=== PATIENT | male | born 1955 | race Caucasian/White ===

== ENCOUNTER 2016-05-08 22:14 | Observation (INO) ==
[2016-05-08] MEDS ORDERED: Ipratropium/Albuterol Neb 3 ML IH ONE (22:28)
[2016-05-08] MEDS ORDERED: *HR* LORazepam 0.5 MG TABLET PO ONE (22:29)
--- NOTE | 2016-05-08 22:33 | Emergency Department Note ---
Disposition Clinical Impression: COPD exacerbation Disposition: Admitted As Inpatient Condition: Fair SOB HPI - General Chief Complaint: ED Shortness of Breath/Dyspnea Stated Complaint: difficulty breathing Source: patient, EMS Mode of arrival: EMS Limitations: no limitations Nursing Notes Reviewed: Yes Vital Signs Reviewed: Yes - History of Present Illness Patient presents to the ED via EMS with complaint of difficulty breathing. States symptoms have been worsening over the past week. He complains of chest tightness. He has also had a sore throat and rhinorrhea. He reports a dry cough and occasional sneezing. He also reports subjective fever and chills. States he has been compliant with all of his COPD medications. He is on azithromycin for prophylaxis and baseline steroids already at home. He wears oxygen at 2 to 2-1/2 L constantly. He was given one nebulizer treatment by EMS. Per their report his saturations were in the upper 80s and they increased his oxygen was increased to 6 L. They were unable to establish an IV to give steroids. On arrival patient is tachypneic with increased work of breathing. - Related Data Home Medications Medication Instructions Recorded Confirmed Budesonide/Formoterol 160/4.5 2 puff IH BID 03/18/15 02/10/16 [Symbicort 160/4.5] Roflumilast [Daliresp] 500 mcg PO DAILY 03/18/15 02/10/16 Tiotropium [Spiriva] 1 puff IH DAILY 03/18/15 02/10/16 LORazepam [Ativan] 0.5 mg PO BID 04/06/15 02/10/16 Montelukast [Singulair] 10 mg PO DAILY 04/06/15 02/10/16 Albuterol Sulfate [Ventolin Hfa] 2 puff IH Q4H PRN 02/10/16 02/10/16 Azithromycin [Zithromax] 250 mg PO 3XW MDD 02/10/16 02/10/16Thursday,thursday,thursday Cetirizine HCl [All Day Allergy] 10 mg PO DAILY 02/10/16 02/10/16 Dicyclomine [Bentyl] 10 mg PO QID 02/10/16 02/10/16 Furosemide [Lasix] 20 mg PO DAILY 02/10/16 02/10/16 Hydrochlorothiazide 12.5 mg PO DAILY 02/10/16 02/10/16 Ipratropium [place] 1 spray NS BID 02/10/16 02/10/16 Levalbuterol HCl [Xopenex Neb] 1.25 mg IH Q8H 02/10/16 02/10/16 Potassium Chloride [Klor-Con 10] 10 meq PO BID 02/10/16 02/10/16 PredniSONE 10 mg PO DAILY 02/10/16 02/10/16 Previous Rx's Medication Instructions Recorded Albuterol Neb [Proventil Neb] 2.5 mg IH [id number] 30 Days 04/09/15 PredniSONE 10 mg PO TAPER #30 tablet 02/14/16 Levofloxacin [Levaquin] 500 mg PO DAILY #2 tablet 03/08/16 Oxycodone HCl/Acetaminophen 1 each PO Q8H PRN #10 tablet 03/08/16 [Percocet 5-325 mg Tablet] PredniSONE 10 mg PO BIDWM #4 tablet 03/08/16 Dicyclomine [Bentyl] 10 mg PO QID #20 capsule 03/10/16 Loratadine [Claritin] 5 mg PO DAILY #30 tablet 03/10/16 PredniSONE 40 mg PO DAILY #30 tablet 03/10/16 Allergies Allergy/AdvReac Type Severity Reaction Status Date / Time Penicillins [PCN] Allergy Vomiting Verified 03/10/16 15:03 Constitutional: Reports: fever (subjective), chills. Denies: weakness, weight change Eyes: Denies: eye pain, eye discharge, vision change ENT ED: Reports: as per HPI, throat pain, congestion Cardiovascular: Denies: chest pain, palpitations, dyspnea on exertion, edema, syncope Respiratory: Reports: cough, dyspnea, wheezes. Denies: hemoptysis, stridor, sputum production Gastrointestinal: Denies: abdominal pain, nausea, vomiting, diarrhea, constipation, hematemesis, melena, hematochezia Genitourinary: Denies: urgency, dysuria, frequency, hematuria Musculoskeletal: Denies: back pain, neck pain, arthralgia, myalgia Integumentary: Denies: rash, abrasion, lesions Neurological: Denies: headache, weakness, numbness, paresthesias, confusion, abnormal gait, vertigo Psychiatric: Denies: anxiety, depression, suicidal thoughts, homicidal thoughts , auditory hallucinations, visual hallucinations Endocrine: Denies: fatigue Hematological/Lymphatic: Denies: easy bleeding, easy bruising Allergic/Immunologic: Denies: facial swelling, urticaria Past Medical History - Past Medical History Medical history: Reports: arthritis, asthma, COPD, thyroid disease, other Surgical history: Reports: no surgical history Psychiatric history: Reports: anxiety - Social History Smoking Status: Former smoker Smokeless Tobacco Status: No Alcohol use: Reports: none Drug use: Reports: none Physical Exam - General Limitations: no limitations General appearance: alert, anxious, in distress - Head Head exam: atraumatic, normocephalic, normal inspection - Eye Eye exam: Present: normal appearance, PERRL, EOMI - ENT ENT exam: normal exam, normal oropharynx, mucous membranes moist, TM's normal bilaterally, normal external ear exam - Neck Neck exam: Present: normal inspection, full ROM, trachea midline. Absent: lymphadenopathy - Chest Chest inspection: Present: normal inspection, symmetric chest wall rise - Respiratory Respiratory exam: Present: respiratory distress (Speaking in 2-4 word sentences) , wheezes, accessory muscle use - Expanded Respiratory Exam Location: wheezes: Lower, Upper, Right, Left, decreased breath sounds: Left, Right, Upper, Lower - Cardiovascular Cardiovascular exam: Present: regular rate, normal rhythm, normal heart sounds - Abdominal Exam Abdominal exam: Present: soft, Non-Tender. Absent: tenderness, distention, guarding, rebound, rigidity - Extremities Exam Extremities exam: Present: normal inspection, full ROM. Absent: tenderness, pedal edema - Back Exam Back exam: Present: normal inspection, full ROM. Absent: tenderness - Neurological Exam Neurological exam: Present: alert, oriented X3 - Psychiatric Psychiatric exam: Present: normal affect, normal mood - Skin Skin exam: Present: warm, dry, intact, normal color Course Course Narrative: Presents to the ED with 1 week of worsening shortness of breath associated respirations symptoms including fever. He was febrile on arrival here at 102. He was very tachypneic with increased work of breathing on arrival. He was given nebulizer treatments, Solu-Medrol and Ativan as he is known to have a significant component of anxiety and takes Ativan at home. Blood cultures were drawn and chest x-ray was obtained along with EKG. Chest x-ray showed a linear opacity that could represent atelectasis versus pneumonia given the fever. He had some improvement in symptoms and aeration with treatment but remained tachypneic with increased oxygen requirement. Patient requires admission for his COPD exacerbation with possibility of pneumonia. I spoke to the hospitalist business solutions consultant, Dr. Magana, who agreed to accept the patient. Vital Signs Temperature 102.0 F H 05/08/16 22:16 Pulse Rate 141 05/08/16 22:16 Respiratory Rate 28 05/08/16 22:16 Blood Pressure 132/99 05/08/16 22:16 O2 Sat by Pulse Oximetry 92 L 05/08/16 22:16 Temperature 99.6 F 05/09/16 02:33 Pulse Rate 99 05/09/16 02:33 Respiratory Rate 19 05/09/16 02:33 Blood Pressure 98/65 05/09/16 02:33 O2 Sat by Pulse Oximetry 96 05/09/16 02:33 Oxygen Delivery Oxygen Delivery Nasal Cannula Shortness of Breath/Dyspnea - Differential Diagnosis Likely: acute exacerbation of chronic obstructive airways disease, pneumonia - Medical Records Medical records reviewed: Yes I reviewed the patient's medical records. - Lab Data Lab results reviewed: Yes I reviewed the patient's lab results. Result diagrams: 05/08/16 22:51 05/08/16 22:51 Lab Results 05/08/16 05/08/16 05/08/16 Range/Units 22:51 22:51 22:51 WBC 10.8 (4.3-11.1) K/mcL RBC 3.86 L (4.19-5.50) M/mcL Hgb 12.9 (12.9-16.9) g/dL Hct 38.6 (37.5-50.1) % MCV 100.0 (83.0-100.0) fL MCH 33.4 H (28.0-33.3) pg MCHC 33.4 (31.6-35.5) g/dL RDW 13.0 (11.5-14.5) % Plt Count 213 (140-400) K/mcL MPV 8.9 L (9.4-12.4) fL Immature Gran % 0.3 (0-4) % Seg Neutrophils % 75.9 % Lymphocytes % 11.1 % Monocytes % 9.9 % Eosinophils % 2.2 % Basophils % 0.6 % Neutrophils # 8.2 (1.6-8.9) K/mcL Lymphocytes # 1.2 (0.6-4.6) K/mcL Monocytes # 1.1 (0.0-1.3) K/mcL Eosinophils # 0.2 (0.0-0.6) K/mcL Basophils # 0.1 (0.0-0.2) K/mcL Sodium 143 (136-145) mEq/L Potassium 4.5 (3.5-4.5) mEq/L Chloride 104 (98-109) mEq/L Carbon Dioxide 28 (19-29) mEq/L BUN 14 (8-26) mg/dL Creatinine 0.81 (0.72-1.25) mg/dL Est GFR ( Amer) > 60 (> 60) Est GFR (Non-Af Amer) > 60 (> 60) BUN/Creatinine Ratio 17 (6-26) Glucose 111 H (70-99) mg/dL Calculated Osmolality 297 (280-300) Calcium 9.7 (8.6-10.8) mg/dL Troponin I 0.01 (0-0.03) ng/mL B-Natriuretic Peptide (0-100) pg/mL 05/08/16 Range/Units 22:51 WBC (4.3-11.1) K/mcL RBC (4.19-5.50) M/mcL Hgb (12.9-16.9) g/dL Hct (37.5-50.1) % MCV (83.0-100.0) fL MCH (28.0-33.3) pg MCHC (31.6-35.5) g/dL RDW (11.5-14.5) % Plt Count (140-400) K/mcL MPV (9.4-12.4) fL Immature Gran % (0-4) % Seg Neutrophils % % Lymphocytes % % Monocytes % % Eosinophils % % Basophils % % Neutrophils # (1.6-8.9) K/mcL Lymphocytes # (0.6-4.6) K/mcL Monocytes # (0.0-1.3) K/mcL Eosinophils # (0.0-0.6) K/mcL Basophils # (0.0-0.2) K/mcL Sodium (136-145) mEq/L Potassium (3.5-4.5) mEq/L Chloride (98-109) mEq/L Carbon Dioxide (19-29) mEq/L BUN (8-26) mg/dL Creatinine (0.72-1.25) mg/dL Est GFR ( Amer) (> 60) Est GFR (Non-Af Amer) (> 60) BUN/Creatinine Ratio (6-26) Glucose (70-99) mg/dL Calculated Osmolality (280-300) Calcium (8.6-10.8) mg/dL Troponin I (0-0.03) ng/mL B-Natriuretic Peptide 25 (0-100) pg/mL - Radiology Data Radiology results reviewed: Yes I reviewed the patient's radiology results. ITS Impressions Chest X-Ray 05/08/16 22:19 IMPRESSION: Minimal left basilar opacity has morphology favoring atelectasis. COPD. D/ / Jean Paul Collado MD / Jean Paul Collado MD Interpreting Provider: Jean Paul Collado MD - EKG Data EKG attestation: Yes I reviewed and interpreted this EKG. Rate: Reports: tachycardia Rhythm: Reports: junctional [place]/QRS: Reports: right axis deviation (borderline) Interpretation: Reports: no acute changes, unchanged when compared to prior tracing (date) (03/10/17)
[2016-05-08 22:58] LABS: Basophils # 0.1 K/mcL (0.0-0.2); Basophils % 0.6 %; Eosinophils # 0.2 K/mcL (0.0-0.6); Eosinophils % 2.2 %; Hematocrit 38.6 % (37.5-50.1); Hemoglobin 12.9 g/dL (12.9-16.9); Immature Granulocytes % 0.3 % (0-4); Lymphocytes # 1.2 K/mcL (0.6-4.6); Lymphocytes % 11.1 %; Mean Corpuscular HGB Conc 33.4 g/dL (31.6-35.5); Mean Corpuscular Hemoglobin 33.4 pg (28.0-33.3); Mean Platelet Volume 8.9 fL (9.4-12.4); Monocytes # 1.1 K/mcL (0.0-1.3); Monocytes % 9.9 %; Neutrophils # 8.2 K/mcL (1.6-8.9); Platelet Count 213 K/mcL (140-400); Red Blood Count 3.86 M/mcL (4.19-5.50); Segmented Neutrophils % 75.9 %
[2016-05-08 23:13] LABS: BUN/Creatinine Ratio 17 (6-26); Blood Urea Nitrogen 14 mg/dL (8-26); Calcium 9.7 mg/dL (8.6-10.8); Carbon Dioxide 28 mEq/L (19-29); Chloride 104 mEq/L (98-109); Glucose 111 mg/dL (70-99); Osmolality,Calculated 297 (280-300); Potassium 4.5 mEq/L (3.5-4.5); Sodium 143 mEq/L (136-145); eGFR For African Americans > 60 (> 60); eGFR For Non-African Americans > 60 (> 60)
[2016-05-08] MEDS ORDERED: Levofloxacin 500 MG/100 ML 500 MG/100 ML BAG IVPB ONE (23:26)
[2016-05-09] MEDS ORDERED: Naloxone 0.4 MG/ML INJ IVP PRN ×2 (01:55→03:28)
[2016-05-09] MEDS ORDERED: Ipratropium/Albuterol Neb 3 ML IH SCH (04:00)
[2016-05-09] MEDS: Ipratropium/Albuterol Neb 3 ML IH SCH ×6 (04:25→23:48)
[2016-05-09] MEDS: Tiotropium 18 MCG inhalation IH SCH (08:25)
[2016-05-09] MEDS: Budesonide/Formoterol 160/4.5 MDI IH SCH ×2 (08:26→20:07)
[2016-05-09] MEDS ORDERED: IPRATROPIUM BROMIDE NS SCH (09:00)
[2016-05-09] MEDS ORDERED: Loratadine 10 MG TABLET PO SCH (09:00)
[2016-05-09] MEDS: *HR* LORazepam 0.5 MG TABLET PO SCH ×2 (09:44→20:17)
[2016-05-09] MEDS: Loratadine 10 MG TABLET PO SCH (09:47)
[2016-05-09] MEDS: Furosemide 20 MG TABLET PO SCH (09:48)
[2016-05-09] MEDS: (Roflumilast [Daliresp] 500 MCG) PO SCH (09:48)
--- NOTE | 2016-05-09 16:45 | Internal Med History&Physical ---
Date of Encounter: 05/09/16 Time of Encounter: 16:25 Assessment and Plan (1) COPD exacerbation Current visit: Yes Status: Acute He has been started on Levaquin and was given a single dose of Solu-Medrol. Home medicines of Symbicort, Singulair, and Spiriva have been ordered with kunal billingsley. Further workup be done as needed. (2) Anxiety Current visit: No Status: Chronic Continue lorazepam Internal Medicine - H&P: HPI Chief complaint: Cough and dyspnea Admitted From: Home Plans for Post Hospital Care: Home History of present illness: Mr. Aquino is a 60 year old male came to emergency room complaining of increasing cough with dyspnea and pharyngitis symptoms onset 3 days previously. The cough was nonproductive. He was evaluated emergency room and felt to have exacerbation of COPD. He was admitted to [facility] floor for ongoing care needs. He was hospitalized last at [facility] February 2016 with similar complaints. He has been several times at [facility] and [facility] in the past few years generally with COPD exacerbations. His respiratory history is significant for known chronic lung disease with pulmonary function tests done April 2013 at [facility] showing very severe obstructive lung disease as well as probable restrictive lung disease. He wears oxygen 24/7 at home. He smoked from age [age] up to 1 pack per day. He denies smoking since discharge from [facility] in December. He had chest CT done . Past Med Surg Social Fam HX - Past Medical History Medical history: arthritis, asthma, COPD, thyroid disease, other Psychiatric history: anxiety - Past Surgical History Surgical History: no surgical history - Social History Smoking Status: Former smoker Smokeless Tobacco Status: No Alcohol use: none Drug use: none - Family History Mother Adopted: Yes Family Member Ethnicity: Non- Living Status: Hx Family Respiratory Disorders: Yes (EMPHYSEMA) Internal Medicine - H&P: Meds Budesonide/Formoterol 160/4.5 [Symbicort 160/4.5] 2 puff IH BID 03/18/15 [ History] Roflumilast [Daliresp] 500 mcg PO DAILY 03/18/15 [History] Tiotropium [Spiriva] 1 puff IH DAILY 03/18/15 [History] LORazepam [Ativan] 0.5 mg PO BID 04/06/15 [History] Montelukast [Singulair] 10 mg PO DAILY 04/06/15 [History] Albuterol Neb [Proventil Neb] 2.5 mg IH [id number] 30 Days 04/09/15 [Rx] Albuterol Sulfate [Ventolin Hfa] 2 puff IH Q4H PRN 02/10/16 [History] Azithromycin [Zithromax] 250 mg PO 3XW MDD thursday,thursday,thursday02/10/16 [ History] Cetirizine HCl [All Day Allergy] 10 mg PO DAILY 02/10/16 [History] Dicyclomine [Bentyl] 10 mg PO QID 02/10/16 [History] Furosemide [Lasix] 20 mg PO DAILY 02/10/16 [History] Hydrochlorothiazide 12.5 mg PO DAILY 02/10/16 [History] Ipratropium [place] 1 spray NS BID 02/10/16 [History] Levalbuterol HCl [Xopenex Neb] 1.25 mg IH Q8H 02/10/16 [History] Potassium Chloride [Klor-Con 10] 10 meq PO BID 02/10/16 [History] PredniSONE 10 mg PO DAILY 02/10/16 [History] PredniSONE 10 mg PO TAPER #30 tablet 02/14/16 [Rx] Levofloxacin [Levaquin] 500 mg PO DAILY #2 tablet 03/08/16 [Rx] Oxycodone HCl/Acetaminophen [Percocet 5-325 mg Tablet] 1 each PO Q8H PRN #10 tablet 03/08/16 [Rx] PredniSONE 10 mg PO BIDWM #4 tablet 03/08/16 [Rx] Dicyclomine [Bentyl] 10 mg PO QID #20 capsule 03/10/16 [Rx] Loratadine [Claritin] 5 mg PO DAILY #30 tablet 03/10/16 [Rx] PredniSONE 40 mg PO DAILY #30 tablet 03/10/16 [Rx] Allergies Penicillins [PCN] Allergy (Verified 03/10/16 15:03) Vomiting All Systems PM: A 10-system review of systems was performed and is negative for pertinent findings except as documented above in the HPI. Review of systems: Review of systems from the February 2016 [facility] hospitalization were reviewed and revised as below. Gen.: His weight has been stable since the December 2015 [facility] hospitalization approximately 53 kg Cardiovascular: He has no documented hypertension PA heart failure DVT or pulmonary embolus. He had an echocardiogram 06/20/2014 which showed LVEF of 60 % with normal systolic and diastolic function. There was no significant valvular abnormality present. Respiratory: As per history of present illness GI: He has no known disorders of his liver gallbladder or exocrine pancreas : No history of hematuria dysuria or kidney stones Neurologic: He denies large distribution strokes or seizures Endocrine: He has no known diabetes or thyroid disease or hyperlipidemia Hematology/oncology: He has had anemia in the past but is now resolved. He has not had documented malignancies. He had pulmonary nodules reported in the past that have been stable for [address] scan per my H&P of May 2014. Psychiatric: He has anxiety but no significant depression or other mental health issues MuskSkeletal: He has minimal arthritis in his hand but has no known gout or osteoporosis - Constitutional Vitals: Temp Pulse Resp BP Pulse Ox 97.8 F 92 20 108/63 94 L 05/09/16 11:12 05/09/16 11:12 05/09/16 15:53 05/09/16 11:12 05/09/16 15:53 Exam: Gen.: He is a well-developed lean male sitting in a chair who appears in minimal respiratory distress at present time. HEENT: Head is atraumatic and normocephalic. Eyes: EOMI. There is no scleral icterus. Mouth: Mucosa is dry Neck: There is no thyromegaly or adenopathy noted Heart: Regular without murmurs gallops or ectopics Lungs: He has diminished breath sounds diffusely. There is prolonged expiratory phase and mild diffuse wheezing. Abdomen: There is minimal tenderness to palpation. Exam is limited because he is in the seated position. Extremities: He has 1+ edema of the dorsum of the feet and perimalleolar area bilaterally. He has minimal DJD changes of his hands. Neurologic: Mental status: He is talkative and good historian. Cranial nerves: Smile is symmetric. Forehead wrinkles bilaterally. Tongue protrudes midline. EOMI. Motor: He has no pronator drift. He has increased shaking of his hands and feet on intentional movement. Cerebellar: Finger to nose intact bilaterally. Skin: Warm and dry. He has erythematous dermatitis of his face. Internal Med - H&P Results - Labs CBC & Chem 7: 05/08/16 22:51 05/08/16 22:51 - VTE Reasons for not Prescribing Prophylaxis: Treatment not Indicated - Low risk for VTE
[2016-05-09] MEDS ORDERED: BENZOCAINE/MENTHOL 1 LOZENGE (BAG OF 6) MM PRN (16:56)
[2016-05-09] MEDS: Azithromycin 250 MG TABLET PO SCH (20:17)
[2016-05-10] MEDS: Ipratropium/Albuterol Neb 3 ML IH SCH ×3 (04:39→21:30)
[2016-05-10] MEDS: *HR* LORazepam 0.5 MG TABLET PO PRN ×2 (05:13→13:57)
[2016-05-10] MEDS: Levalbuterol Neb 1.25 MG/3 ML IH PRN ×2 (05:15→21:17)
[2016-05-10 05:22] LABS: Basophils # 0.1 K/mcL (0.0-0.2); Basophils % 0.7 %; Eosinophils # 0.1 K/mcL (0.0-0.6); Eosinophils % 0.7 %; Hematocrit 36.6 % (37.5-50.1); Hemoglobin 12.1 g/dL (12.9-16.9); Immature Granulocytes % 0.3 % (0-4); Lymphocytes # 1.5 K/mcL (0.6-4.6); Lymphocytes % 16.8 %; Mean Corpuscular HGB Conc 33.1 g/dL (31.6-35.5); Mean Corpuscular Hemoglobin 32.8 pg (28.0-33.3); Mean Corpuscular Volume 99.2 fL (83.0-100.0); Mean Platelet Volume 9.3 fL (9.4-12.4); Monocytes # 1.5 K/mcL (0.0-1.3); Monocytes % 16.6 %; Neutrophils # 5.8 K/mcL (1.6-8.9); Platelet Count 229 K/mcL (140-400); Red Blood Count 3.69 M/mcL (4.19-5.50); Red Cell Distribution Width 13.2 % (11.5-14.5); Segmented Neutrophils % 64.9 %
[2016-05-10] MEDS: Furosemide 20 MG TABLET PO SCH (08:01)
[2016-05-10] MEDS: Loratadine 10 MG TABLET PO SCH (08:02)
[2016-05-10] MEDS: *HR* LORazepam 0.5 MG TABLET PO SCH ×3 (08:02→20:21)
[2016-05-10] MEDS: (Roflumilast [Daliresp] 500 MCG) PO SCH ×2 (08:04→14:30)
[2016-05-10] MEDS ORDERED: Albuterol 2.5 MG/3 ML NEBULIZER ONE (08:23)
[2016-05-10] MEDS: Budesonide/Formoterol 160/4.5 MDI IH SCH ×2 (08:29→21:18)
[2016-05-10] MEDS: Tiotropium 18 MCG inhalation IH SCH (09:01)
[2016-05-10] MEDS: Chloraseptic Spray 177 ML BOTTLE MM PRN ×2 (09:08→14:32)
[2016-05-10] MEDS: Albuterol 2.5 MG/3 ML NEBULIZER IH PRN ×2 (11:08→14:49)
--- NOTE | 2016-05-10 14:52 | Internal Med Progress Note ---
Date of Encounter: 05/10/16 Time of Encounter: 14:25 - Assessment and plan (1) COPD exacerbation Current Visit: Yes Status: Acute Assessment and plan: May 10. Continue present regimen. WBC and differential have improved from yesterday. (2) Anxiety Current Visit: No Status: Chronic Assessment and plan: May 10. Continue lorazepam. Will increase frequency of scheduled to every 6 hours. - Subjective Interval history: He complains of significant dyspnea - Constitutional Vitals: Temp Pulse Resp BP Pulse Ox 98.6 F 110 18 146/80 95 05/10/16 11:27 05/10/16 11:27 05/10/16 11:27 05/10/16 11:27 05/10/16 11:27 Exam: He appears somewhat anxious, sitting in a chair. He has audible expiratory wheezing with diminished breath sounds diffusely. I reviewed his medications and lab results. Internal Medicine: Result - Labs CBC & Chem 7: 05/10/16 05:01 05/08/16 22:51 Labs: Short CBC 05/10/16 Range/Units 05:01 WBC 8.9 (4.3-11.1) K/mcL Hgb 12.1 L (12.9-16.9) g/dL Hct 36.6 L (37.5-50.1) % Plt Count 229 (140-400) K/mcL Neutrophils # 5.8 (1.6-8.9) K/mcL - VTE Reasons for not Prescribing Prophylaxis: Treatment not Indicated - Low risk for VTE Consult Discharge Plan - Plan Referrals: NO,PCP [Primary Care Provider] - 1 week
[2016-05-10] MEDS ORDERED: *HR* LORazepam 2 MG/ML VIAL IVP ONE (14:56)
[2016-05-10] MEDS ORDERED: *HR* Metoprolol 5 MG/5 ML VIAL IVP ONE (15:27)
[2016-05-10] MEDS: PredniSONE 20 MG TABLET PO SCH ×2 (15:33→18:51)
[2016-05-10] MEDS: Mag Hydrox/Al Hydrox/Simeth 30 ML UDC PO PRN ×2 (15:51→20:22)
[2016-05-11] MEDS: Levalbuterol Neb 1.25 MG/3 ML IH PRN ×2 (01:19→05:11)
[2016-05-11] MEDS: *HR* LORazepam 0.5 MG TABLET PO SCH ×4 (05:59→20:54)
[2016-05-11] MEDS: Chloraseptic Spray 177 ML BOTTLE MM PRN ×2 (08:14→15:27)
[2016-05-11] MEDS: *HR* OxyCODONE/APAP 5/325 TABLET PO PRN (08:16)
[2016-05-11] MEDS: Furosemide 20 MG TABLET PO SCH (08:18)
[2016-05-11] MEDS: Loratadine 10 MG TABLET PO SCH (08:18)
[2016-05-11] MEDS: PredniSONE 20 MG TABLET PO SCH ×2 (08:18→17:57)
[2016-05-11] MEDS: (Roflumilast [Daliresp] 500 MCG) PO SCH ×2 (08:18→08:19)
[2016-05-11] MEDS: Tiotropium 18 MCG inhalation IH SCH (08:45)
[2016-05-11] MEDS: Albuterol 2.5 MG/3 ML NEBULIZER IH PRN ×4 (08:46→21:31)
[2016-05-11] MEDS: Budesonide/Formoterol 160/4.5 MDI IH SCH ×2 (08:47→21:31)
--- NOTE | 2016-05-11 10:55 | Internal Med Progress Note ---
Date of Encounter: 05/11/16 Time of Encounter: 10:45 - Assessment and plan (1) COPD exacerbation Current Visit: Yes Status: Acute Assessment and plan: May 10. Continue present regimen. WBC and differential have improved from yesterday. May 11. Continue present regimen (2) Anxiety Current Visit: No Status: Chronic Assessment and plan: May 10. Continue lorazepam. Will increase frequency of scheduled to every 6 hours. May 11. Continue present scheduled and prn Ativan. - Subjective Interval history: May 10. He complains of significant dyspnea May 11. He has no new complaints. He states his breathing is slightly improved and his throat is less sore. - Constitutional Vitals: Temp Pulse Resp BP Pulse Ox 98.4 F 97 17 106/74 94 L 05/11/16 07:44 05/11/16 07:44 05/11/16 08:51 05/11/16 07:44 05/11/16 08:51 Exam: He is sitting in a chair and appears more calm. His Ativan dose was increased yesterday. He still has prolonged expiratory phase and mild diffuse wheezing. I reviewed his medications and lab results. Internal Medicine: Result - Labs CBC & Chem 7: 05/10/16 05:01 05/08/16 22:51 - VTE Reasons for not Prescribing Prophylaxis: Treatment not Indicated - Low risk for VTE Consult Discharge Plan - Plan Referrals: NO,PCP [Primary Care Provider] - 1 week
[2016-05-11] MEDS: Mag Hydrox/Al Hydrox/Simeth 30 ML UDC PO PRN (13:48)
[2016-05-11] MEDS: *HR* LORazepam 0.5 MG TABLET PO PRN (14:04)
[2016-05-12] MEDS: *HR* LORazepam 0.5 MG TABLET PO SCH ×2 (06:03→08:10)
[2016-05-12] MEDS: Albuterol 2.5 MG/3 ML NEBULIZER IH PRN (06:23)
[2016-05-12] MEDS: (Roflumilast [Daliresp] 500 MCG) PO SCH (08:08)
[2016-05-12] MEDS: *HR* OxyCODONE/APAP 5/325 TABLET PO PRN (08:10)
[2016-05-12] MEDS: Loratadine 10 MG TABLET PO SCH (08:11)
[2016-05-12] MEDS: PredniSONE 20 MG TABLET PO SCH (08:11)
[2016-05-12] MEDS: Chloraseptic Spray 177 ML BOTTLE MM PRN (08:12)
[2016-05-12] MEDS: Azithromycin 250 MG TABLET PO SCH (08:13)
[2016-05-12] MEDS: Furosemide 20 MG TABLET PO SCH (08:17)
[2016-05-12 08:21] VITALS: BP 109/63
[2016-05-12] MEDS ORDERED: Fluticasone Propionate Nasal 50 MCG/SPRAY BOTTLE NS SCH (09:00)
[2016-05-12] MEDS: Budesonide/Formoterol 160/4.5 MDI IH SCH (09:45)
[2016-05-12] MEDS: Tiotropium 18 MCG inhalation IH SCH (09:46)
--- NOTE | 2016-05-12 10:40 | Discharge Summary ---
Date of Encounter: 05/12/16 Time of Encounter: 10:20 - Discharge Diagnosis (1) COPD exacerbation Priority: Primary Status: Acute (2) Anxiety Priority: Secondary Status: Chronic - Discharge Medications Prescriptions: Benzocaine/Menthol [place] [Cepacol Sore Throat Lozenge] 1 each MM Q2H PRN #1 pack PRN Reason: Pain Chloraseptic [place] [Chloraseptic] 1 spray MM QID PRN #1 bottle PRN Reason: Sore Throat PredniSONE 10 mg PO BIDWM #10 tablet Tramadol HCl [Ultram] 50 mg PO QID PRN #20 tab PRN Reason: Pain Home Medications: Budesonide/Formoterol 160/4.5 [Symbicort 160/4.5] 2 puff IH BID 03/18/15 [ History] Roflumilast [Daliresp] 500 mcg PO DAILY 03/18/15 [History] Tiotropium [Spiriva] 1 puff IH DAILY 03/18/15 [History] LORazepam [Ativan] 0.5 mg PO BID 04/06/15 [History] Montelukast [Singulair] 10 mg PO DAILY 04/06/15 [History] Albuterol Neb [Proventil Neb] 2.5 mg IH [id number] 30 Days 04/09/15 [Rx] Albuterol Sulfate [Ventolin Hfa] 2 puff IH Q4H PRN 02/10/16 [History] Azithromycin [Zithromax] 250 mg PO 3XW MDD thursday,thursday,thursday02/10/16 [ History] Cetirizine HCl [All Day Allergy] 10 mg PO DAILY 02/10/16 [History] Dicyclomine [Bentyl] 10 mg PO QID 02/10/16 [History] Furosemide [Lasix] 20 mg PO DAILY 02/10/16 [History] Hydrochlorothiazide 12.5 mg PO DAILY 02/10/16 [History] Ipratropium [place] 1 spray NS BID 02/10/16 [History] Levalbuterol HCl [Xopenex Neb] 1.25 mg IH Q8H 02/10/16 [History] Potassium Chloride [Klor-Con 10] 10 meq PO BID 02/10/16 [History] Dicyclomine [Bentyl] 10 mg PO QID #20 capsule 03/10/16 [Rx] Loratadine [Claritin] 5 mg PO DAILY #30 tablet 03/10/16 [Rx] Benzocaine/Menthol [place] [Cepacol Sore Throat Lozenge] 1 each MM Q2H PRN #1 pack 05/12/16 [Rx] Chloraseptic [place] [Chloraseptic] 1 spray MM QID PRN #1 bottle 05/12/16 [Rx] PredniSONE 10 mg PO BIDWM #10 tablet 05/12/16 [Rx] Tramadol HCl [Ultram] 50 mg PO QID PRN #20 tab 05/12/16 [Rx] Allergies/Adverse Reactions: Allergies Penicillins [PCN] Allergy (Verified 03/10/16 15:03) Vomiting Date of admission: 05/09/16 01:14 Primary care physician: Melodie Trejo CNP - Patient Status Disposition: Home Health Service Condition: Fair Overall status at discharge: patient is progressing back to baseline - Discharge Instructions Follow Up With: Melodie Trejo CNP [Advanced Practice Nurse] - 1 week - Diet and Activity Activity: resume usual activities as tolerated, wear oxygen at all times Diet: advance to your usual diet Hospital course: Mr. Aquino is a 60 year old male who came to emergency room complaining of increasing cough with dyspnea and pharyngitis symptoms onset 3 days previously. The cough was nonproductive. He was evaluated in emergency room and felt to have exacerbation of COPD. He was admitted to [facility] floor for ongoing care needs. Initial orders were written by the emergency room physician. I saw him on May 09 and performed a history and physical. He was started on Levaquin and given a single dose of Solu-Medrol. I added oral prednisone. He had gradual improvement in his respiratory status. I felt he was stable for discharge home on May 12. He remained afebrile throughout his hospital course. He had significant anxiety and multiple complaints and demands as he has manifested on previous admissions. His Ativan dose was increased during hospitalization to every 6 hours. He will return to the lower dose of twice a day upon discharge. Tramadol was given for complaints of pain. He will receive 20 pills on prescription at discharge. On May 12 he was stable for discharge home. He will follow with his PCP Melodie Trejo CNP within 1 week. Will continue oxygen as at home. - Time Spent with Patient Total time spent providing and/or coordinating discharge services: - Constitutional Vitals: Temp Pulse Resp BP Pulse Ox 97.4 F L 99 20 109/63 91 L 05/12/16 08:21 05/12/16 08:21 05/12/16 09:45 05/12/16 08:21 05/12/16 09:45 - VTE Reasons for not Prescribing Prophylaxis: Treatment not Indicated - Low risk for VTE
--- NOTE | 2016-05-12 10:46 | Physician Discharge Referral ---
Home Health/Hosp Referral Info Transfer to: Home Health Attending Provider: [place] Provider in Charge Post Discharge: PCP (Melodie Trejo CNP) - Diagnosis (1) COPD exacerbation Priority: Primary Status: Acute (2) Anxiety Priority: Secondary Status: Chronic - Respiratory Orders Oxygen / L per min (Oxygen at 2-4 L/m by nasal cannula 13/10) Smoking Cessation: Smoking cessation has been advised. For more information, call the [employer] Tobacco Quit Line at 4-737-TAMQ-NOW. - Diet/Nutrition Diet/Nutrition Orders: Regular - Activity Activity Orders: Ambulate - Services Needed Following services are medically necessary services: Nursing, Home Health Aide, Physical Therapy, Occupational Therapy - Transfer Medications Prescriptions: Benzocaine/Menthol [place] [Cepacol Sore Throat Lozenge] 1 each MM Q2H PRN #1 pack PRN Reason: Pain Chloraseptic [place] [Chloraseptic] 1 spray MM QID PRN #1 bottle PRN Reason: Sore Throat PredniSONE 10 mg PO BIDWM #10 tablet Tramadol HCl [Ultram] 50 mg PO QID PRN #20 tab PRN Reason: Pain Home Medications: Budesonide/Formoterol 160/4.5 [Symbicort 160/4.5] 2 puff IH BID 03/18/15 [ History] Roflumilast [Daliresp] 500 mcg PO DAILY 03/18/15 [History] Tiotropium [Spiriva] 1 puff IH DAILY 03/18/15 [History] LORazepam [Ativan] 0.5 mg PO BID 04/06/15 [History] Montelukast [Singulair] 10 mg PO DAILY 04/06/15 [History] Albuterol Neb [Proventil Neb] 2.5 mg IH [id number] 30 Days 04/09/15 [Rx] Albuterol Sulfate [Ventolin Hfa] 2 puff IH Q4H PRN 02/10/16 [History] Azithromycin [Zithromax] 250 mg PO 3XW MDD thursday,thursday,thursday02/10/16 [ History] Cetirizine HCl [All Day Allergy] 10 mg PO DAILY 02/10/16 [History] Dicyclomine [Bentyl] 10 mg PO QID 02/10/16 [History] Furosemide [Lasix] 20 mg PO DAILY 02/10/16 [History] Hydrochlorothiazide 12.5 mg PO DAILY 02/10/16 [History] Ipratropium [place] 1 spray NS BID 02/10/16 [History] Levalbuterol HCl [Xopenex Neb] 1.25 mg IH Q8H 02/10/16 [History] Potassium Chloride [Klor-Con 10] 10 meq PO BID 02/10/16 [History] Dicyclomine [Bentyl] 10 mg PO QID #20 capsule 03/10/16 [Rx] Loratadine [Claritin] 5 mg PO DAILY #30 tablet 03/10/16 [Rx] Benzocaine/Menthol [place] [Cepacol Sore Throat Lozenge] 1 each MM Q2H PRN #1 pack 05/12/16 [Rx] Chloraseptic [place] [Chloraseptic] 1 spray MM QID PRN #1 bottle 05/12/16 [Rx] PredniSONE 10 mg PO BIDWM #10 tablet 05/12/16 [Rx] Tramadol HCl [Ultram] 50 mg PO QID PRN #20 tab 05/12/16 [Rx] Allergies/Adverse Reactions: Allergies Penicillins [PCN] Allergy (Verified 03/10/16 15:03) Vomiting Certification: Further, I certify that my clinical findings support that this patient is homebound (i.e. absences from home require considerable and taxing effort and are for medical reasons or jainism services or infrequently or short duration when for other reasons) because: Homebound Reason: Leaving home requires considerable and taxing effort due to condition (End-stage COPD with hypoxemia) Attestation: My signature below is to certify that this patient is under my care and that I, or nurse practitioner, or a physician's pharmacy assistant working with me, has a face-to -face encounter with this patient.
[2016-05-12] MEDS: *HR* LORazepam 0.5 MG TABLET PO PRN (12:24)
--- NOTE | 2016-05-13 05:42 | Electrocardiograph Report ---
[address] [address] Test Date: 2016-05-08 Pat Name: Shayne Aquino Department: [id number] Room: [facility] Gender: M [employer]: : 1955 Requested By: Zeina Deutsch Order Number: [id number] Reading MD: David Hernandez MD Measurements Intervals [place] Rate: 128 P: 255 [place]: 104 QRS: 94 QRSD: 80 T: 55 QT: 258 QTc: 334 Interpretive Statements SINUS TACHYCARDIA BORDERLINE RIGHT AXIS DEVIATION Electronically Signed On 05-13-2016 5:40:27 EST by David Hernandez MD
== END 2016-05-12 13:04 | disposition home health service (06) ==
LOC: INPPIK 22:14 → EMEROOPIK 22:14 → INPPIK 05-09 02:15
PROVIDERS: ADMIT Internal Medicine; ATTEND Internal Medicine

== ENCOUNTER 2017-04-02 15:00 | Inpatient (IN) ==
[2017-04-02] MEDS ORDERED: methylPREDNISolone 125 MG/2 ML VIAL IVP ONE (15:02)
[2017-04-02] MEDS ORDERED: Ipratropium/Albuterol Neb 3 ML IH ONE (15:02)
[2017-04-02] MEDS ORDERED: 0.9 % Sodium Chloride 1,000 ML IVC ONE ×2 (15:02→16:52)
[2017-04-02] MEDS ORDERED: levoFLOXacin 500 MG TABLET PO ONE (15:02)
--- NOTE | 2017-04-02 15:04 | Emergency Department Note ---
Disposition Clinical Impression: Acute exacerbation of chronic obstructive airways disease Disposition: Admitted As Inpatient Condition: Fair Referrals: Josie Dueñas CNP [Primary Care Provider] - Forms: ED Satisfaction Letter SOB HPI - General Chief Complaint: ED Shortness of Breath/Dyspnea Stated Complaint: vanessa Time Seen by Provider: 04/02/17 15:02 Source: patient, EMS Mode of arrival: EMS Limitations: physical limitation Nursing Notes Reviewed: Yes Vital Signs Reviewed: Yes - History of Present Illness Patient has history of COPD with increasing shortness of breath for last day or 2. Brought in by EMS noting his saturations did drop into the 80s on his oxygen with minimal exertion or motion. Arrives here agitated demanding a plan and complaining of severe dyspnea. He states he has had increased cough and shortness of breath for 2-3 days bringing up a lot of thick, chunky and slimy phlegm. He attributes this to being exposed to family member with upper respiratory infection. He has had a feeling fevers and chills and chest tightness with his breathing but no other chest pain. Denies abdominal pain that is new. He relates he has some chronic abdominal problems. He denies nausea, vomiting or diarrhea. He denies extremity swelling, immobilization or pain. Denies other change in his medicines. Pt Subjective Complaint: shortness of breath Onset (ago): day(s) Context: recent illness Severity: moderate, severe Consistency/Duration: gradually worsening Improves with: oxygen, rest, bronchodilators Worsens with: exertion, coughing Known history of: COPD Associated symptoms: Reports: fever, cough, wheezing, sputum production, abdominal pain (Chronic). Denies: chest pain, pain with inspiration, orthopnea , lower extremity pain, polyuria, polydipsia, parasthesias, palpitations, hemoptysis, diaphoresis, nausea/vomiting, syncope, rash Treatment prior to arrival: oxygen, bronchodilator Cough present: Yes Cough Description: Involuntary, Productive, Moist, Rattling Cough Frequency: Intermittent Sputum production: Yes Sputum Amount: Moderate - Related Data Home oxygen amount: 3 liters Home Medications Medication Instructions Recorded Confirmed Budesonide/Formoterol 160/4.5 2 puff IH BID 03/18/15 04/02/17 [Symbicort 160/4.5] Roflumilast [Daliresp] 500 mcg PO DAILY 03/18/15 04/02/17 Tiotropium [Spiriva] 1 puff IH DAILY 03/18/15 04/02/17 Montelukast [Singulair] 10 mg PO DAILY 04/06/15 04/02/17 Albuterol Sulfate [Ventolin Hfa] 2 puff IH Q4H PRN 02/10/16 04/02/17 Azithromycin [Zithromax] 250 mg PO MOWEFR 02/10/16 04/02/17 Cetirizine HCl [All Day Allergy] 10 mg PO DAILY 02/10/16 04/02/17 Ipratropium [place] 1 spray NS BID 02/10/16 04/02/17 Levalbuterol HCl [Xopenex Neb] 1.25 mg IH Q8H 02/10/16 04/02/17 hydroCHLOROthiazide 12.5 mg PO Q48H 02/10/16 04/02/17 [Hydrochlorothiazide] Albuterol Neb [Proventil Neb] 2.5 mg IH [id number] PRN 05/13/16 04/02/17 Metoclopramide [Reglan] 10 mg PO TID 05/13/16 04/02/17 Previous Rx's Medication Instructions Recorded LORazepam [Ativan] 1 mg PO BID PRN #14 tablet 05/15/16 Lactose-Reduced Food [Ensure High 1 bottle PO TID #90 can 05/15/16 Protein] predniSONE [PredniSONE] 10 mg PO DAILY #41 tablet 05/15/16 Allergies Allergy/AdvReac Type Severity Reaction Status Date / Time Penicillins [PCN] Allergy Vomiting Verified 04/02/17 15:01 All systems ED: reviewed and negative except as stated. Past Medical History - Past Medical History Attestation: Yes The following information was validated with the patient. Source: patient, old records reviewed, obtained from family, nursing notes reviewed Medical history: Reports: arthritis, asthma, COPD, thyroid disease, other Surgical history: Reports: no surgical history Psychiatric history: Reports: anxiety - Social History Smoking Status: Former smoker Smokeless Tobacco Status: No Alcohol use: Reports: none Drug use: Reports: none Physical Exam - General Limitations: physical limitation (Dyspnea) General appearance: alert, in distress - Head Head exam: atraumatic, normocephalic, normal inspection - Eye Eye exam: Present: normal appearance, PERRL, EOMI. Absent: conjunctival injection - ENT ENT exam: normal exam, normal oropharynx, mucous membranes moist - Neck Neck exam: Present: normal inspection, full ROM, trachea midline - Chest Chest inspection: Present: normal inspection, symmetric chest wall rise. Absent : tenderness - Respiratory Respiratory exam: Present: respiratory distress, wheezes, accessory muscle use, prolonged expiratory phase - Cardiovascular Cardiovascular exam: Present: regular rate, normal rhythm, tachycardia, normal heart sounds - Abdominal Exam Abdominal exam: Present: soft, Non-Tender, normal bowel sounds. Absent: tenderness, distention, guarding, rebound, rigidity - Extremities Exam Extremities exam: Present: normal inspection, full ROM, normal capillary refill. Absent: tenderness, pedal edema, calf tenderness - Expanded Lower Extremity Exam Neurovascular/Tendon exam: Present: normal capillary refill. Absent: motor deficit, sensory deficit, tendon deficit Gait: not tested/not observed - Back Exam Back exam: Present: normal inspection, full ROM. Absent: tenderness - Neurological Exam Neurological exam: Present: alert, oriented X3. Absent: motor sensory deficit - Psychiatric Psychiatric exam: Present: agitated, anxious - Skin Skin exam: Present: warm, dry, intact, normal color. Absent: cyanosis, diaphoresis, pallor Course Course Narrative: 1649: Patient has been vacillating about staying in this hospital. We did check with [facility] and they state they have no beds" people in the halls". [facility] did have some telemetry beds and we placed a page to the hospitalist at 4:30 PM. Prior to his hearing back from the hospitalist the patient has declared that he wants to stay at this facility. I have spoken with Dr. Magana and he is coordinated for orders to the floor. He currently has a heart rate of 110, saturation 94%, respiratory rate 30, blood pressure 155/ 95. He is alert, pink, warm and dry and resting with a fan blowing from the Benadryl. He indicates he is feeling improved but is still dyspneic and is agreeable to staying in the hospital. Vital Signs Temperature 99.1 F 04/02/17 15:01 Pulse Rate 119 04/02/17 15:01 Respiratory Rate 24 04/02/17 15:01 Blood Pressure 158/86 04/02/17 15:01 O2 Sat by Pulse Oximetry 92 04/02/17 15:01 Temperature 99.1 F 04/02/17 15:01 Pulse Rate 115 04/02/17 16:44 Respiratory Rate 24 04/02/17 16:44 Blood Pressure 160/94 04/02/17 16:44 O2 Sat by Pulse Oximetry 93 04/02/17 16:44 Oxygen Delivery Oxygen Delivery Nasal Cannula Shortness of Breath/Dyspnea - Differential Diagnosis Likely: acute exacerbation of chronic obstructive airways disease, congestive heart failure, pneumonia, asthma with exacerbation - Medical Records Medical records reviewed: Yes I reviewed the patient's medical records. - Lab Data Lab results reviewed: Yes I reviewed the patient's lab results. Result diagrams: 04/02/17 15:12 04/02/17 15:12 Lab Results 04/02/17 04/02/17 04/02/17 Range/Units 15:12 15:12 15:12 WBC 10.6 (4.3-11.1) K/mcL RBC 4.39 (4.19-5.50) M/mcL Hgb 14.0 (12.9-16.9) g/dL Hct 42.8 (37.5-50.1) % MCV 97.5 (83.0-100.0) fL MCH 31.9 (28.0-33.3) pg MCHC 32.7 (31.6-35.5) g/dL RDW 12.5 (11.5-14.5) % Plt Count 270 (140-400) K/mcL MPV 8.9 L (9.4-12.4) fL Immature Gran % 0.3 (0-4) % Seg Neutrophils % 62.6 % Lymphocytes % 23.0 % Monocytes % 10.8 % Eosinophils % 2.5 % Basophils % 0.8 % Neutrophils # 6.7 (1.6-8.9) K/mcL Lymphocytes # 2.4 (0.6-4.6) K/mcL Monocytes # 1.2 (0.0-1.3) K/mcL Eosinophils # 0.3 (0.0-0.6) K/mcL Basophils # 0.1 (0.0-0.2) K/mcL PT 11.4 (9.4-12.1) Seconds INR 1.1 Sample Site ABG pH (7.32-7.45) pH Units ABG pCO2 (35-45) mmHg ABG pO2 (85-104) mmHg ABG HCO3 (21-27) mEq/L ABG Total CO2 (20-26) mEq/L ABG O2 Saturation (95-98) % ABG Base Excess (-2 to 3) mEq/L Dev Test Blood Gas Modality Inspired O2 (1-15=lpm uz09-095=%) Sodium 142 (136-145) mEq/L Potassium 4.0 (3.5-4.5) mEq/L Chloride 102 (98-109) mEq/L Carbon Dioxide 30 H (19-29) mEq/L BUN 12 (8-26) mg/dL Creatinine 0.82 (0.72-1.25) mg/dL Est GFR ( Amer) > 60 (> 60) Est GFR (Non-Af Amer) > 60 (> 60) BUN/Creatinine Ratio 15 (6-26) Glucose 117 H (70-99) mg/dL Calculated Osmolality 295 (280-300) Lactic Acid (0.5-2.2) mmol/L Calcium 10.1 (8.6-10.8) mg/dL Total Bilirubin 0.3 (0.2-1.2) mg/dL Direct Bilirubin 0.1 (0.0-0.5) mg/dL Indirect Bilirubin 0.2 (0.0-1.2) mg/dL AST 15 (5-34) Units/L ALT 13 (0-55) Units/L Alkaline Phosphatase 69 (38-126) Units/L Troponin I (0-0.03) ng/mL B-Natriuretic Peptide (0-100) pg/mL Serum Total Protein 7.3 (6.0-8.3) g/dL Albumin 3.8 (3.5-5.0) g/dL Globulin 3.5 (2.4-3.5) g/dL Albumin/Globulin Ratio 1.1 (1.1-2.2) 04/02/17 04/02/17 04/02/17 Range/Units 15:12 15:12 15:12 WBC (4.3-11.1) K/mcL RBC (4.19-5.50) M/mcL Hgb (12.9-16.9) g/dL Hct (37.5-50.1) % MCV (83.0-100.0) fL MCH (28.0-33.3) pg MCHC (31.6-35.5) g/dL RDW (11.5-14.5) % Plt Count (140-400) K/mcL MPV (9.4-12.4) fL Immature Gran % (0-4) % Seg Neutrophils % % Lymphocytes % % Monocytes % % Eosinophils % % Basophils % % Neutrophils # (1.6-8.9) K/mcL Lymphocytes # (0.6-4.6) K/mcL Monocytes # (0.0-1.3) K/mcL Eosinophils # (0.0-0.6) K/mcL Basophils # (0.0-0.2) K/mcL PT (9.4-12.1) Seconds INR Sample Site ABG pH (7.32-7.45) pH Units ABG pCO2 (35-45) mmHg ABG pO2 (85-104) mmHg ABG HCO3 (21-27) mEq/L ABG Total CO2 (20-26) mEq/L ABG O2 Saturation (95-98) % ABG Base Excess (-2 to 3) mEq/L Dev Test Blood Gas Modality Inspired O2 (1-15=lpm ip88-424=%) Sodium (136-145) mEq/L Potassium (3.5-4.5) mEq/L Chloride (98-109) mEq/L Carbon Dioxide (19-29) mEq/L BUN (8-26) mg/dL Creatinine (0.72-1.25) mg/dL Est GFR ( Amer) (> 60) Est GFR (Non-Af Amer) (> 60) BUN/Creatinine Ratio (6-26) Glucose (70-99) mg/dL Calculated Osmolality (280-300) Lactic Acid 2.7 H (0.5-2.2) mmol/L Calcium (8.6-10.8) mg/dL Total Bilirubin (0.2-1.2) mg/dL Direct Bilirubin (0.0-0.5) mg/dL Indirect Bilirubin (0.0-1.2) mg/dL AST (5-34) Units/L ALT (0-55) Units/L Alkaline Phosphatase (38-126) Units/L Troponin I 0.01 (0-0.03) ng/mL B-Natriuretic Peptide 32 (0-100) pg/mL Serum Total Protein (6.0-8.3) g/dL Albumin (3.5-5.0) g/dL Globulin (2.4-3.5) g/dL Albumin/Globulin Ratio (1.1-2.2) 04/02/17 Range/Units 15:41 WBC (4.3-11.1) K/mcL RBC (4.19-5.50) M/mcL Hgb (12.9-16.9) g/dL Hct (37.5-50.1) % MCV (83.0-100.0) fL MCH (28.0-33.3) pg MCHC (31.6-35.5) g/dL RDW (11.5-14.5) % Plt Count (140-400) K/mcL MPV (9.4-12.4) fL Immature Gran % (0-4) % Seg Neutrophils % % Lymphocytes % % Monocytes % % Eosinophils % % Basophils % % Neutrophils # (1.6-8.9) K/mcL Lymphocytes # (0.6-4.6) K/mcL Monocytes # (0.0-1.3) K/mcL Eosinophils # (0.0-0.6) K/mcL Basophils # (0.0-0.2) K/mcL PT (9.4-12.1) Seconds INR Sample Site R Brach ABG pH 7.34 (7.32-7.45) pH Units ABG pCO2 61 H (35-45) mmHg ABG pO2 74 L (85-104) mmHg ABG HCO3 33 H (21-27) mEq/L ABG Total CO2 35 H (20-26) mEq/L ABG O2 Saturation 93 L (95-98) % ABG Base Excess 6 H (-2 to 3) mEq/L Dev Test N/A Blood Gas Modality nc Inspired O2 32.0 (1-15=lpm fe10-129=%) Sodium (136-145) mEq/L Potassium (3.5-4.5) mEq/L Chloride (98-109) mEq/L Carbon Dioxide (19-29) mEq/L BUN (8-26) mg/dL Creatinine (0.72-1.25) mg/dL Est GFR ( Amer) (> 60) Est GFR (Non-Af Amer) (> 60) BUN/Creatinine Ratio (6-26) Glucose (70-99) mg/dL Calculated Osmolality (280-300) Lactic Acid (0.5-2.2) mmol/L Calcium (8.6-10.8) mg/dL Total Bilirubin (0.2-1.2) mg/dL Direct Bilirubin (0.0-0.5) mg/dL Indirect Bilirubin (0.0-1.2) mg/dL AST (5-34) Units/L ALT (0-55) Units/L Alkaline Phosphatase (38-126) Units/L Troponin I (0-0.03) ng/mL B-Natriuretic Peptide (0-100) pg/mL Serum Total Protein (6.0-8.3) g/dL Albumin (3.5-5.0) g/dL Globulin (2.4-3.5) g/dL Albumin/Globulin Ratio (1.1-2.2) - Radiology Data Radiology results reviewed: Yes I reviewed the patient's radiology results. Single view chest x-ray is performed. This does not demonstrate evidence for acute infiltrate, effusion, pneumothorax, foreign body or heart failure. Patient has some interstitial stranding in the right upper lobe. The cardiac silhouette is normal. I do not see abnormality to the osseous structures of the chest. This is on my interpretation. Impressions Chest X-Ray 04/02/17 15:02 IMPRESSION: Increased interstitial markings at the lung apices which are likely chronic in etiology, however acute on chronic process cannot be excluded. D/ / Albertina Hutton MD / Albertina Hutton MD Interpreting Provider: Albertina Hutton MD - EKG Data EKG attestation: Yes I reviewed and interpreted this EKG. EKG shows normal: Reports: sinus rhythm (114), axis (Borderline right axis), intervals, QRS complexes, ST-T waves Interpretation: Reports: no acute changes, nonspecific ST-T wave changes, other (Artifact)
[2017-04-02 15:21] LABS: Basophils # 0.1 K/mcL (0.0-0.2); Basophils % 0.8 %; Eosinophils # 0.3 K/mcL (0.0-0.6); Eosinophils % 2.5 %; Hematocrit 42.8 % (37.5-50.1); Immature Granulocytes % 0.3 % (0-4); Lymphocytes # 2.4 K/mcL (0.6-4.6); Mean Corpuscular HGB Conc 32.7 g/dL (31.6-35.5); Mean Corpuscular Hemoglobin 31.9 pg (28.0-33.3); Mean Corpuscular Volume 97.5 fL (83.0-100.0); Mean Platelet Volume 8.9 fL (9.4-12.4); Monocytes # 1.2 K/mcL (0.0-1.3); Monocytes % 10.8 %; Neutrophils # 6.7 K/mcL (1.6-8.9); Platelet Count 270 K/mcL (140-400); Red Blood Count 4.39 M/mcL (4.19-5.50); Red Cell Distribution Width 12.5 % (11.5-14.5); Segmented Neutrophils % 62.6 %
[2017-04-02 15:28] LABS: INR 1.1; Prothrombin Time 11.4 Seconds (9.4-12.1)
[2017-04-02 15:38] LABS: Alanine Aminotransferase 13 Units/L (0-55); Albumin 3.8 g/dL (3.5-5.0); Albumin/Globulin Ratio 1.1 (1.1-2.2); Alkaline Phosphatase 69 Units/L (38-126); Aspartate Amino Transferase 15 Units/L (5-34); BUN/Creatinine Ratio 15 (6-26); Bilirubin,Direct 0.1 mg/dL (0.0-0.5); Bilirubin,Indirect 0.2 mg/dL (0.0-1.2); Bilirubin,Total 0.3 mg/dL (0.2-1.2); Blood Urea Nitrogen 12 mg/dL (8-26); Calcium 10.1 mg/dL (8.6-10.8); Carbon Dioxide 30 mEq/L (19-29); Chloride 102 mEq/L (98-109); Globulin 3.5 g/dL (2.4-3.5); Glucose 117 mg/dL (70-99); Osmolality,Calculated 295 (280-300); Sodium 142 mEq/L (136-145); Total Protein 7.3 g/dL (6.0-8.3); eGFR For African Americans > 60 (> 60); eGFR For Non-African Americans > 60 (> 60)
[2017-04-02 15:45] LABS: ABG Base Excess 6 mEq/L (-2 to 3); ABG HCO3 33 mEq/L (21-27); ABG Oxygen Saturation 93 % (95-98); ABG PCO2 61 mmHg (35-45); ABG PH 7.34 pH Units (7.32-7.45); ABG PO2 74 mmHg (85-104); ABG TCO2 35 mEq/L (20-26); Blood Gas Modality nc
--- NOTE | 2017-04-02 15:58 | Electrocardiograph Report ---
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
[2017-04-02] MEDS ORDERED: 0.9 % Sodium Chloride 1,000 ML IVC SCH (17:00)
[2017-04-02] MEDS ORDERED: Albuterol 2.5 MG/3 ML NEBULIZER IH ONE (17:09)
[2017-04-02] MEDS ORDERED: Naloxone 0.4 MG/ML INJ IVP PRN (18:11)
[2017-04-02] MEDS ORDERED: Ondansetron 4 MG/2 ML VIAL IVP PRN (18:11)
[2017-04-02] MEDS: Acetaminophen 325 MG TABLET PO PRN (20:59)
[2017-04-02] MEDS ORDERED: NON-FORMULARY MEDICATION 1 EACH EACH (Lactose-Reduced Food [Ensure High Protein] 1 BOTTLE) PO SCH (21:00)
[2017-04-02] MEDS: hydroCHLOROthiazide 25 MG TABLET PO SCH (21:02)
[2017-04-02] MEDS: *HR* LORazepam 1 MG TABLET PO PRN (21:03)
[2017-04-02] MEDS: 0.9 % Sodium Chloride 1,000 ML IVC SCH (21:05)
[2017-04-02] MEDS: Ipratropium/Albuterol Neb 3 ML IH SCH (21:50)
[2017-04-02] MEDS: Budesonide/Formoterol 160/4.5 MDI IH SCH (22:46)
[2017-04-02] MEDS: MethylPREDNISolone 40 MG/ML VIAL IVP SCH (22:47)
[2017-04-02] MEDS: Loratadine 10 MG TABLET PO SCH (22:47)
[2017-04-03] MEDS: Ipratropium/Albuterol Neb 3 ML IH SCH ×4 (03:49→21:26)
[2017-04-03] MEDS: 0.9 % Sodium Chloride 1,000 ML IVC SCH ×2 (06:42→16:28)
[2017-04-03] MEDS: MethylPREDNISolone 40 MG/ML VIAL IVP SCH ×2 (08:17→15:05)
[2017-04-03] MEDS: Levofloxacin 750 MG/150 ML 750 MG/150 ML BAG IVPB SCH (08:17)
[2017-04-03] MEDS: Albuterol 2.5 MG/3 ML NEBULIZER IH PRN ×5 (08:21→18:23)
[2017-04-03] MEDS: Budesonide/Formoterol 160/4.5 MDI IH SCH ×2 (08:22→20:27)
[2017-04-03] MEDS: Tiotropium 18 MCG inhalation IH SCH (08:23)
[2017-04-03] MEDS: *HR* LORazepam 1 MG TABLET PO PRN ×2 (08:24→21:13)
[2017-04-03] MEDS ORDERED: Loratadine 10 MG TABLET PO SCH (09:00)
--- NOTE | 2017-04-03 11:48 | Internal Med History&Physical ---
Date of Encounter: 04/03/17 Time of Encounter: 11:15 Assessment and Plan (1) COPD exacerbation Current visit: No Status: Acute Internal Medicine - H&P: HPI Chief complaint: Dyspnea Admitted From: Emergency Dept Plans for Post Hospital Care: Home History of present illness: Mr. Aquino is a 61 year old male who came to emergency room stating he had increased dyspnea with cough productive of white phlegm onset 2 days previously. He was evaluated in emergency room and felt to have exacerbation of COPD and was admitted to [facility] floor for ongoing care needs. He was hospitalized last at [facility] April 2016 with similar complaints. He has been hospitalized several times at [facility] and [facility] in the past few years generally with COPD exacerbations. His respiratory history is significant for known chronic lung disease with pulmonary function tests done April 2013 at [facility] showing very severe obstructive lung disease as well as probable restrictive lung disease. He wears oxygen 24/7 at home. He smoked from age [age] up to 1 pack per day. He had chest CT done 07/11/2016 which showed stable pulmonary nodules. Past Med Surg Social Fam HX - Past Medical History Medical history: arthritis, asthma, COPD, thyroid disease, other Psychiatric history: anxiety - Past Surgical History Surgical History: no surgical history - Social History Smoking Status: Former smoker Smokeless Tobacco Status: No Alcohol use: none Drug use: none - Family History Mother Adopted: Yes Family Member Ethnicity: Non- Living Status: Hx Family Respiratory Disorders: Yes (EMPHYSEMA) Internal Medicine - H&P: Meds Budesonide/Formoterol 160/4.5 [Symbicort 160/4.5] 2 puff IH BID 03/18/15 [ History] Roflumilast [Daliresp] 500 mcg PO DAILY 03/18/15 [History] Tiotropium [Spiriva] 1 puff IH DAILY 03/18/15 [History] Montelukast [Singulair] 10 mg PO DAILY 04/06/15 [History] Albuterol Sulfate [Ventolin Hfa] 2 puff IH Q4H PRN 02/10/16 [History] Azithromycin [Zithromax] 250 mg PO MOWEFR 02/10/16 [History] Cetirizine HCl [All Day Allergy] 10 mg PO DAILY 02/10/16 [History] Ipratropium [place] 1 spray NS BID 02/10/16 [History] Levalbuterol HCl [Xopenex Neb] 1.25 mg IH Q8H 02/10/16 [History] hydroCHLOROthiazide [Hydrochlorothiazide] 12.5 mg PO Q48H 02/10/16 [History] Albuterol Neb [Proventil Neb] 2.5 mg IH [id number] PRN 05/13/16 [History] Metoclopramide [Reglan] 10 mg PO TID 05/13/16 [History] LORazepam [Ativan] 1 mg PO BID PRN #14 tablet 05/15/16 [Rx] Lactose-Reduced Food [Ensure High Protein] 1 bottle PO TID #90 can 05/15/16 [Rx] predniSONE [PredniSONE] 10 mg PO DAILY #41 tablet 05/15/16 [Rx] 3 Allergy/AdvReac Type Severity Reaction Status Date / Time Penicillins [PCN] Allergy Vomiting Verified 04/02/17 15:01 All Systems PM: A 10-system review of systems was performed and is negative for pertinent findings except as documented above in the HPI. Review of systems: Review of systems from the April 2016 [facility] hospitalization were reviewed and revised as below. Gen.: His weight has been stable since the December 2015 [facility] hospitalization at approximately 53 kg Cardiovascular: He has no documented hypertension [place] heart failure DVT or pulmonary embolus. He had an echocardiogram 06/20/2014 which showed LVEF of 60 % with normal systolic and diastolic function. There was no significant valvular abnormality present. Respiratory: As per history of present illness GI: He has no known disorders of his liver gallbladder or exocrine pancreas : No history of hematuria dysuria or kidney stones Neurologic: He denies large distribution strokes or seizures Endocrine: He has no known diabetes or thyroid disease or hyperlipidemia Hematology/oncology: He has had anemia in the past but is now resolved. He has not had documented malignancies. Psychiatric: He has anxiety but no significant depression or other mental health issues MuskSkeletal: He has minimal arthritis in his hand but has no known gout or osteoporosis - Constitutional Vitals: Temp Pulse Resp BP Pulse Ox 98.1 F 81 18 118/62 94 04/03/17 10:56 04/03/17 10:56 04/03/17 10:56 04/03/17 10:56 04/03/17 10:56 Exam: Gen.: He is a well-developed well-nourished male lying in bed who appears dyspneic at rest HEENT: Head is atraumatic and normocephalic. Eyes: EOMI. There is no scleral icterus. Mouth: Mucosa is moist. Neck: Supple and nontender. There is no thyromegaly or adenopathy noted. Heart: Regular without murmurs gallops or ectopics Lungs: He has prolonged expiratory phase and mild diffuse wheezing Abdomen: Soft and nontender. No masses or guarding are noted. Extremities: There is no cyanosis edema or clubbing noted. Dorsalis pedis and posterior tibial pulses are 1-2 over 2 bilaterally. Neurologic: Mental status: He speaks rapidly and mumbles and his speech is difficult to understand. Cranial nerves: Smile is symmetric. Forehead wrinkles bilaterally. Tongue protrudes midline. EOMI. Motor: There is no pronator drift. Cerebellar: Finger to nose intact bilaterally. Skin: Warm and dry Internal Med - H&P Results - Labs CBC & Chem 7: 04/02/17 15:12 04/02/17 15:12
[2017-04-03] MEDS ORDERED: Saline Nasal Spray 44 ML BOTTLE NS PRN (12:49)
[2017-04-03] MEDS: MOM Conc 10 ML UD.LIQ PO PRN (15:13)
[2017-04-03] MEDS: Loratadine 10 MG TABLET PO SCH (21:06)
[2017-04-04] MEDS: MethylPREDNISolone 40 MG/ML VIAL IVP SCH ×3 (00:04→15:08)
[2017-04-04] MEDS: Ipratropium/Albuterol Neb 3 ML IH SCH ×2 (04:06→10:41)
[2017-04-04 05:43] LABS: Basophils % 0.1 %; Immature Granulocytes % 0.5 % (0-4); Lymphocytes # 0.6 K/mcL (0.6-4.6); Lymphocytes % 5.8 %; Mean Corpuscular HGB Conc 31.7 g/dL (31.6-35.5); Mean Corpuscular Hemoglobin 31.9 pg (28.0-33.3); Mean Corpuscular Volume 100.5 fL (83.0-100.0); Mean Platelet Volume 9.3 fL (9.4-12.4); Monocytes # 0.6 K/mcL (0.0-1.3); Monocytes % 5.5 %; Platelet Count 250 K/mcL (140-400); Red Blood Count 4.08 M/mcL (4.19-5.50); Red Cell Distribution Width 12.5 % (11.5-14.5); Segmented Neutrophils % 88.1 %
[2017-04-04 05:58] LABS: BUN/Creatinine Ratio 25 (6-26); Blood Urea Nitrogen 19 mg/dL (8-26); Calcium 10.4 mg/dL (8.6-10.8); Carbon Dioxide 36 mEq/L (19-29); Chloride 99 mEq/L (98-109); Glucose 124 mg/dL (70-99); Osmolality,Calculated 300 (280-300); Potassium 4.8 mEq/L (3.5-4.5); Sodium 143 mEq/L (136-145); eGFR For African Americans > 60 (> 60); eGFR For Non-African Americans > 60 (> 60)
[2017-04-04] MEDS: Levofloxacin 750 MG/150 ML 750 MG/150 ML BAG IVPB SCH (09:23)
[2017-04-04] MEDS: MOM Conc 10 ML UD.LIQ PO PRN (09:45)
[2017-04-04] MEDS: *HR* LORazepam 1 MG TABLET PO PRN ×2 (09:45→21:12)
[2017-04-04] MEDS: Albuterol 2.5 MG/3 ML NEBULIZER IH PRN ×3 (10:17→17:32)
[2017-04-04] MEDS: Tiotropium 18 MCG inhalation IH SCH (10:18)
[2017-04-04] MEDS: Budesonide/Formoterol 160/4.5 MDI IH SCH ×2 (10:18→22:06)
[2017-04-04] MEDS: Oxymetazoline Nasal SPRAY BOTTLE NS SCH ×2 (11:01→17:39)
[2017-04-04] MEDS: Acetaminophen 325 MG TABLET PO PRN ×2 (11:01→21:10)
--- NOTE | 2017-04-04 14:43 | Internal Med Progress Note ---
Date of Encounter: 04/04/17 Time of Encounter: 10:00 - Assessment and plan (1) COPD exacerbation Current Visit: No Status: Acute Assessment and plan: April 04. Will continue Levaquin and pulmonary regimen including IV Solu- Medrol. Recheck labs in a.m. - Subjective Interval history: April 04. He has no new complaints. He is still dyspneic. - Constitutional Vitals: Temp Pulse Resp BP Pulse Ox 97.9 F 87 30 113/74 96 04/04/17 05:07 04/04/17 05:07 04/04/17 12:58 04/04/17 05:07 04/04/17 12:58 Exam: He is resting in bed receiving a nebulizer treatment at this time. His lungs show prolonged expiratory phase and mild diffuse wheezing. Reviewed his medications and lab results. Internal Medicine: Result - Labs CBC & Chem 7: 04/04/17 05:24 04/04/17 05:24 Labs: Short CBC 04/04/17 Range/Units 05:24 WBC 10.2 (4.3-11.1) K/mcL Hgb 13.0 (12.9-16.9) g/dL Hct 41.0 (37.5-50.1) % Plt Count 250 (140-400) K/mcL Neutrophils # 9.0 H (1.6-8.9) K/mcL BMP 04/04/17 05:24 Sodium 143 Potassium 4.8 H Chloride 99 Carbon Dioxide 36 H BUN 19 Creatinine 0.77 Glucose 124 H Calcium 10.4 - ABG Interpretation ABG results: ABG ABG pH 7.34 pH Units (7.32-7.45) 04/02/17 15:41 ABG pCO2 61 mmHg (35-45) H 04/02/17 15:41 ABG pO2 74 mmHg (85-104) L 04/02/17 15:41 ABG O2 Saturation 93 % (95-98) L 04/02/17 15:41 PT/INR, D-dimer PT 11.4 Seconds (9.4-12.1) 04/02/17 15:12 Consult Discharge Plan - Plan Referrals: Josie Dueñas, NIGHAT [Primary Care Provider] - 1 week
[2017-04-04] MEDS: hydroCHLOROthiazide 25 MG TABLET PO SCH ×2 (17:39→21:11)
[2017-04-04] MEDS ORDERED: *HR* LORazepam 2 MG/ML VIAL IVP ONE (17:50)
[2017-04-04] MEDS ORDERED: *HR* Morphine 2 MG/ML SYRINGE IVP ONE (17:51)
[2017-04-04] MEDS: Loratadine 10 MG TABLET PO SCH (21:12)
[2017-04-05] MEDS: MethylPREDNISolone 40 MG/ML VIAL IVP SCH ×3 (00:32→18:01)
[2017-04-05] MEDS: Albuterol 2.5 MG/3 ML NEBULIZER IH PRN ×4 (02:34→22:53)
[2017-04-05] MEDS: Oxymetazoline Nasal SPRAY BOTTLE NS SCH ×2 (06:08→18:01)
[2017-04-05] MEDS: Levofloxacin 750 MG/150 ML 750 MG/150 ML BAG IVPB SCH (09:00)
[2017-04-05] MEDS: *HR* LORazepam 1 MG TABLET PO PRN (09:02)
[2017-04-05] MEDS: Budesonide/Formoterol 160/4.5 MDI IH SCH ×3 (10:01→22:53)
[2017-04-05] MEDS: Tiotropium 18 MCG inhalation IH SCH (10:07)
[2017-04-05] MEDS ORDERED: *HR* Morphine 2 MG/ML SYRINGE IVP ONE (11:15)
--- NOTE | 2017-04-05 11:19 | Internal Med Progress Note ---
Date of Encounter: 04/05/17 Time of Encounter: 11:10 - Assessment and plan (1) COPD exacerbation Current Visit: No Status: Acute Assessment and plan: April 04. Will continue Levaquin and pulmonary regimen including IV Solu- Medrol. Recheck labs in a.m. April 05. Continue present regimen. Will add low dose Ativan scheduled and give a single dose of morphine to lessen anxiety and improve breathing. Will add Toprol-XL low-dose to control tachycardia - Subjective Interval history: April 04. He has no new complaints. He is still dyspneic. April 05. He has no new complaints but still dyspneic. - Constitutional Vitals: Temp Pulse Resp BP Pulse Ox 98.6 F 97 20 119/70 94 04/05/17 06:40 04/05/17 06:40 04/05/17 08:24 04/05/17 06:40 04/05/17 08:24 Exam: He is lying in bed and appears dyspneic at rest. He appears slightly anxious. His lungs show prolonged expiratory phase and mild diffuse wheezing. His heart is regular rate approximately 120/m with an occasional ectopic. I reviewed his medications and lab results. Internal Medicine: Result - Labs CBC & Chem 7: 04/04/17 05:24 04/04/17 05:24 - ABG Interpretation ABG results: ABG ABG pH 7.34 pH Units (7.32-7.45) 04/02/17 15:41 ABG pCO2 61 mmHg (35-45) H 04/02/17 15:41 ABG pO2 74 mmHg (85-104) L 04/02/17 15:41 ABG O2 Saturation 93 % (95-98) L 04/02/17 15:41 PT/INR, D-dimer PT 11.4 Seconds (9.4-12.1) 04/02/17 15:12 - VTE Documentation of Mechanical Device: Graduated compression elastic hosiery Consult Discharge Plan - Plan Referrals: Josie Dueñas CNP [Primary Care Provider] - 1 week
[2017-04-05] MEDS: *HR* LORazepam 0.5 MG TABLET PO SCH ×2 (11:41→18:01)
[2017-04-05] MEDS: Metoprolol XL (24 HR) Succ 25 MG TAB.ER.24H PO SCH (11:41)
[2017-04-05] MEDS ORDERED: *HR* LORazepam 0.5 MG TABLET PO SCH (16:00)
[2017-04-05] MEDS: *HR* Morphine 2 MG/ML SYRINGE IVP PRN (18:34)
[2017-04-05] MEDS: Loratadine 10 MG TABLET PO SCH (21:09)
[2017-04-06] MEDS: MethylPREDNISolone 40 MG/ML VIAL IVP SCH ×3 (00:31→15:49)
[2017-04-06] MEDS: *HR* LORazepam 0.5 MG TABLET PO SCH ×3 (00:31→15:50)
[2017-04-06] MEDS: *HR* Morphine 2 MG/ML SYRINGE IVP PRN ×4 (00:32→19:32)
[2017-04-06] MEDS: Albuterol 2.5 MG/3 ML NEBULIZER IH PRN ×5 (04:59→23:46)
[2017-04-06] MEDS: Oxymetazoline Nasal SPRAY BOTTLE NS SCH ×2 (07:04→15:49)
[2017-04-06] MEDS: Levofloxacin 750 MG/150 ML 750 MG/150 ML BAG IVPB SCH (07:33)
[2017-04-06] MEDS: Metoprolol XL (24 HR) Succ 25 MG TAB.ER.24H PO SCH (07:34)
[2017-04-06 08:12] LABS: Basophils % 0.1 %; Hematocrit 40.3 % (37.5-50.1); Hemoglobin 12.6 g/dL (12.9-16.9); Immature Granulocytes % 0.5 % (0-4); Lymphocytes # 0.5 K/mcL (0.6-4.6); Lymphocytes % 5.8 %; Mean Corpuscular HGB Conc 31.3 g/dL (31.6-35.5); Mean Corpuscular Hemoglobin 31.9 pg (28.0-33.3); Mean Platelet Volume 9.8 fL (9.4-12.4); Monocytes # 0.7 K/mcL (0.0-1.3); Monocytes % 9.1 %; Neutrophils # 6.5 K/mcL (1.6-8.9); Platelet Count 244 K/mcL (140-400); Red Blood Count 3.95 M/mcL (4.19-5.50); Red Cell Distribution Width 12.1 % (11.5-14.5); Segmented Neutrophils % 84.5 %
[2017-04-06 09:33] LABS: BUN/Creatinine Ratio 22 (6-26); Blood Urea Nitrogen 17 mg/dL (8-26); Calcium 9.8 mg/dL (8.6-10.8); Chloride 92 mEq/L (98-109); Glucose 143 mg/dL (70-99); Osmolality,Calculated 296 (280-300); Sodium 141 mEq/L (136-145); eGFR For African Americans > 60 (> 60); eGFR For Non-African Americans > 60 (> 60)
[2017-04-06] MEDS: Budesonide/Formoterol 160/4.5 MDI IH SCH ×2 (09:35→22:20)
[2017-04-06] MEDS: Tiotropium 18 MCG inhalation IH SCH (09:36)
[2017-04-06 09:55] LABS: Carbon Dioxide 43 mEq/L (19-29)
--- NOTE | 2017-04-06 10:19 | Internal Med Progress Note ---
Date of Encounter: 04/06/17 Time of Encounter: 10:10 - Assessment and plan (1) COPD exacerbation Current Visit: No Status: Acute Assessment and plan: April 04. Will continue Levaquin and pulmonary regimen including IV Solu- Medrol. Recheck labs in a.m. April 05. Continue present regimen. Will add low dose Ativan scheduled and give a single dose of morphine to lessen anxiety and improve breathing. Will add Toprol-XL low-dose to control tachycardia April 06. Continue present regimen. He is gradually improving. - Subjective Interval history: April 04. He has no new complaints. He is still dyspneic. April 05. He has no new complaints but still dyspneic. April 06. He feels minimally improved today. - Constitutional Vitals: Temp Pulse Resp BP Pulse Ox 98.4 F 70 16 122/73 93 04/06/17 06:43 04/06/17 06:43 04/06/17 09:37 04/06/17 06:43 04/06/17 09:37 Exam: He has prolonged expiratory phase and mild diffuse wheezing. There appears to be slight improvement from yesterday. His heart rate is now 88/m which is improved on Toprol. I reviewed his medications and lab results. Internal Medicine: Result - Labs CBC & Chem 7: 04/06/17 06:45 04/06/17 06:45 Labs: Short CBC 04/06/17 Range/Units 06:45 WBC 7.7 (4.3-11.1) K/mcL Hgb 12.6 L (12.9-16.9) g/dL Hct 40.3 (37.5-50.1) % Plt Count 244 (140-400) K/mcL Neutrophils # 6.5 (1.6-8.9) K/mcL BMP 04/06/17 06:45 Sodium 141 Potassium 5.0 H Chloride 92 L Carbon Dioxide 43 H* BUN 17 Creatinine 0.76 Glucose 143 H Calcium 9.8 - ABG Interpretation ABG results: ABG ABG pH 7.34 pH Units (7.32-7.45) 04/02/17 15:41 ABG pCO2 61 mmHg (35-45) H 04/02/17 15:41 ABG pO2 74 mmHg (85-104) L 04/02/17 15:41 ABG O2 Saturation 93 % (95-98) L 04/02/17 15:41 PT/INR, D-dimer PT 11.4 Seconds (9.4-12.1) 04/02/17 15:12 - VTE Documentation of Mechanical Device: Graduated compression elastic hosiery Consult Discharge Plan - Plan Referrals: Josie Dueñas CNP [Primary Care Provider] - 1 week
[2017-04-06] MEDS: *HR* LORazepam 1 MG TABLET PO PRN ×2 (13:38→19:32)
[2017-04-06] MEDS: hydroCHLOROthiazide 25 MG TABLET PO SCH (15:50)
[2017-04-06] MEDS: Loratadine 10 MG TABLET PO SCH (19:32)
[2017-04-06] MEDS ORDERED: *HR* LORazepam 2 MG/ML VIAL IVP STA (21:05)
[2017-04-07] MEDS: *HR* LORazepam 0.5 MG TABLET PO SCH ×2 (00:27→07:41)
[2017-04-07] MEDS: MethylPREDNISolone 40 MG/ML VIAL IVP SCH ×2 (00:30→07:42)
[2017-04-07] MEDS: *HR* Morphine 2 MG/ML SYRINGE IVP PRN ×3 (01:57→18:14)
[2017-04-07] MEDS: Albuterol 2.5 MG/3 ML NEBULIZER IH PRN ×4 (04:35→16:44)
[2017-04-07] MEDS: *HR* LORazepam 1 MG TABLET PO PRN (07:41)
[2017-04-07] MEDS: Metoprolol XL (24 HR) Succ 25 MG TAB.ER.24H PO SCH (07:41)
[2017-04-07] MEDS: Budesonide/Formoterol 160/4.5 MDI IH SCH (08:20)
[2017-04-07] MEDS: Tiotropium 18 MCG inhalation IH SCH (08:23)
[2017-04-07] MEDS ORDERED: levoFLOXacin 500 MG TABLET PO SCH (09:00)
--- NOTE | 2017-04-07 10:59 | Discharge Summary ---
Date of Encounter: 04/07/17 Time of Encounter: 10:50 - Discharge Diagnosis (1) COPD exacerbation Priority: Primary Status: Acute - Discharge Medications Prescriptions: Doxycycline 100 mg PO BID #10 capsule Lactobacillus [Culturelle] 1 each PO BID #10 cap.sprink Metoprolol Succinate 12.5 mg PO DAILY #15 tab.er.24h predniSONE [PredniSONE] 10 mg PO BIDWM #10 tablet Home Medications: Budesonide/Formoterol 160/4.5 [Symbicort 160/4.5] 2 puff IH BID 03/18/15 [ History] Roflumilast [Daliresp] 500 mcg PO DAILY 03/18/15 [History] Tiotropium [Spiriva] 1 puff IH DAILY 03/18/15 [History] Montelukast [Singulair] 10 mg PO DAILY 04/06/15 [History] Albuterol Sulfate [Ventolin Hfa] 2 puff IH Q4H PRN 02/10/16 [History] Azithromycin [Zithromax] 250 mg PO MOWEFR 02/10/16 [History] Cetirizine HCl [All Day Allergy] 10 mg PO DAILY 02/10/16 [History] Ipratropium [place] 1 spray NS BID 02/10/16 [History] Levalbuterol HCl [Xopenex Neb] 1.25 mg IH Q8H 02/10/16 [History] hydroCHLOROthiazide [Hydrochlorothiazide] 12.5 mg PO Q48H 02/10/16 [History] Albuterol Neb [Proventil Neb] 2.5 mg IH [id number] PRN 05/13/16 [History] Metoclopramide [Reglan] 10 mg PO TID 05/13/16 [History] LORazepam [Ativan] 1 mg PO BID PRN #14 tablet 05/15/16 [Rx] Lactose-Reduced Food [Ensure High Protein] 1 bottle PO TID #90 can 05/15/16 [Rx] Doxycycline 100 mg PO BID #10 capsule 04/07/17 [Rx] Lactobacillus [Culturelle] 1 each PO BID #10 cap.sprink 04/07/17 [Rx] Metoprolol Succinate 12.5 mg PO DAILY #15 tab.er.24h 04/07/17 [Rx] predniSONE [PredniSONE] 10 mg PO BIDWM #10 tablet 04/07/17 [Rx] Allergies/Adverse Reactions: 3 Allergy/AdvReac Type Severity Reaction Status Date / Time Penicillins [PCN] Allergy Vomiting Verified 04/02/17 15:01 Date of admission: 04/03/17 11:54 Primary care physician: Josie Dueñas CNP - Patient Status Disposition: Home Health Service Condition: Fair Functional capacity at discharge: uses cane/walker Overall status at discharge: patient is progressing back to baseline - Discharge Instructions Follow Up With: Josie Dueñas CNP [Primary Care Provider] - 1 week - Diet and Activity Activity: resume usual activities as tolerated, wear oxygen at all times Diet: advance to your usual diet Hospital course: Mr. Aquino is a 61 year old male who came to emergency room stating he had increased dyspnea with cough productive of white phlegm onset 2 days previously. He was evaluated in emergency room and felt to have exacerbation of COPD and was admitted to [facility] floor for ongoing care needs. Initial orders were written by the emergency room physician. I saw him on April 03 and perform the history and physical. He was started on IV steroids with IV Levaquin. His home medications were generally continued. He had slight improvement during his hospital stay. He was occasionally noncompliant with oxygen use and became hypoxic without oxygen. He required BiPAP briefly to assist in breathing. He required Ativan and morphine periodically to help improve his breathing. He was given Toprol-XL to help control tachycardia. He remained afebrile during his hospital stay. Follow-up lab work on April 06 showed WBC normal at 7.7 with 84.5% segs. On April 07 I told him I felt there was nothing more I could offer him at [facility] for treatment. I told him it would be several days of additional recovery before he would feel back to his baseline. I offered sending him to a fdc or transferring him to [facility] but he declined both of these. He was agreeable to be discharged home. He will continue with antibiotic and probiotic with prednisone for 5 days. Follow with his PCP within one week. - Time Spent with Patient Total time spent providing and/or coordinating discharge services: - Constitutional Vitals: Temp Pulse Resp BP Pulse Ox 98.0 F 84 24 152/86 82 04/07/17 06:34 04/07/17 06:34 04/07/17 08:24 04/07/17 06:34 04/07/17 08:24 - VTE Documentation of Mechanical Device: Graduated compression elastic hosiery
--- NOTE | 2017-04-07 11:26 | Physician Discharge Referral ---
Home Health/Hosp Referral Info Transfer to: Home Health Attending Provider: [place] Provider in Charge Post Discharge: PCP - Diagnosis (1) COPD exacerbation Priority: Primary Status: Acute - Respiratory Orders Oxygen / L per min (2-4 L/m by nasal cannula 13/10) Smoking Cessation: Smoking cessation has been advised. For more information, call the [place] Tobacco Quit Line at 5-957-HGDD-NOW. - Diet/Nutrition Diet/Nutrition Orders: Regular - Activity Activity Orders: Walker - Services Needed Following services are medically necessary services: Nursing, Home Health Aide, Physical Therapy, Occupational Therapy - Transfer Medications Prescriptions: Doxycycline 100 mg PO BID #10 capsule Lactobacillus [Culturelle] 1 each PO BID #10 cap.sprink Metoprolol Succinate 12.5 mg PO DAILY #15 tab.er.24h predniSONE [PredniSONE] 10 mg PO BIDWM #10 tablet Home Medications: Budesonide/Formoterol 160/4.5 [Symbicort 160/4.5] 2 puff IH BID 03/18/15 [ History] Roflumilast [Daliresp] 500 mcg PO DAILY 03/18/15 [History] Tiotropium [Spiriva] 1 puff IH DAILY 03/18/15 [History] Montelukast [Singulair] 10 mg PO DAILY 04/06/15 [History] Albuterol Sulfate [Ventolin Hfa] 2 puff IH Q4H PRN 02/10/16 [History] Azithromycin [Zithromax] 250 mg PO MOWEFR 02/10/16 [History] Cetirizine HCl [All Day Allergy] 10 mg PO DAILY 02/10/16 [History] Ipratropium [place] 1 spray NS BID 02/10/16 [History] Levalbuterol HCl [Xopenex Neb] 1.25 mg IH Q8H 02/10/16 [History] hydroCHLOROthiazide [Hydrochlorothiazide] 12.5 mg PO Q48H 02/10/16 [History] Albuterol Neb [Proventil Neb] 2.5 mg IH [id number] PRN 05/13/16 [History] Metoclopramide [Reglan] 10 mg PO TID 05/13/16 [History] LORazepam [Ativan] 1 mg PO BID PRN #14 tablet 05/15/16 [Rx] Lactose-Reduced Food [Ensure High Protein] 1 bottle PO TID #90 can 05/15/16 [Rx] Doxycycline 100 mg PO BID #10 capsule 04/07/17 [Rx] Lactobacillus [Culturelle] 1 each PO BID #10 cap.sprink 04/07/17 [Rx] Metoprolol Succinate 12.5 mg PO DAILY #15 tab.er.24h 04/07/17 [Rx] predniSONE [PredniSONE] 10 mg PO BIDWM #10 tablet 04/07/17 [Rx] Allergies/Adverse Reactions: 3 Allergy/AdvReac Type Severity Reaction Status Date / Time Penicillins [PCN] Allergy Vomiting Verified 04/02/17 15:01 Certification: Further, I certify that my clinical findings support that this patient is homebound (i.e. absences from home require considerable and taxing effort and are for medical reasons or latter day services or infrequently or short duration when for other reasons) because: Homebound Reason: Leaving home requires considerable and taxing effort due to condition (End-stage COPD) Attestation: My signature below is to certify that this patient is under my care and that I, or nurse practitioner, or a physician's assistant coach working with me, has a face-to -face encounter with this patient.
[2017-04-07 12:42] VITALS: BP 128/82
[2017-04-07 12:59] LABS: ABG Base Excess 16 mEq/L (-2 to 3); ABG HCO3 47 mEq/L (21-27); ABG Oxygen Saturation 96 % (95-98); ABG PCO2 87 mmHg (35-45); ABG PH 7.34 pH Units (7.32-7.45); ABG PO2 93 mmHg (85-104); ABG TCO2 49 mEq/L (20-26)
[2017-04-07] MEDS ORDERED: *HR* Morphine 2 MG/ML SYRINGE ONE (18:06)
== END 2017-04-07 17:35 | disposition short-term general hospital (02) | DRG 190 ==
LOC: EMEROOPIK 15:00 → INPPIK 15:00
PROVIDERS: ADMIT Internal Medicine; ATTEND Internal Medicine

== ENCOUNTER 2019-03-14 18:03 | Inpatient (IN) ==
[2019-03-14] MEDS ORDERED: cefTRIAXone 2,000 MG in Water for inj. (sterile) 10 ML IVP ONE (18:04)
[2019-03-14] MEDS ORDERED: Azithromycin 500 MG in 0.9 % Sodium Chloride 250 ML IVPB ONE (18:04)
[2019-03-14] MEDS ORDERED: methylPREDNISolone 125 MG/2 ML VIAL IVP ONE (18:04)
[2019-03-14] MEDS ORDERED: Ipratropium/Albuterol Neb 3 ML IH ONE (18:04)
[2019-03-14 18:25] LABS: ABG Base Excess 2 mEq/L (-2 to 3); ABG HCO3 31 mEq/L (21-27); ABG Oxygen Saturation 91 % (95-98); ABG PCO2 65 mmHg (35-45); ABG PH 7.28 pH Units (7.32-7.45); ABG PO2 72 mmHg (85-104); ABG TCO2 33 mEq/L (20-26)
[2019-03-14 18:35] LABS: Basophils % 0.8 %; Eosinophils % 0.9 %; Hemoglobin 12.7 g/dL (12.9-16.9); Immature Granulocytes % 0.4 % (0-4); Lymphocytes % 27.4 %; Mean Corpuscular HGB Conc 31.8 g/dL (31.6-35.5); Mean Corpuscular Hemoglobin 30.8 pg (28.0-33.3); Mean Corpuscular Volume 97.1 fL (83.0-100.0); Mean Platelet Volume 8.7 fL (9.4-12.4); Monocytes % 9.9 %; Platelet Count 261 K/mcL (140-400); Red Blood Count 4.12 M/mcL (4.19-5.50); Red Cell Distribution Width 13.2 % (11.5-14.5); Segmented Neutrophils % 60.6 %; White Blood Count 7.7 K/mcL (4.3-11.1)
[2019-03-14] MEDS ORDERED: 0.9 % Sodium Chloride 1,000 ML IVC ONE (18:35)
[2019-03-14 18:36] LABS: Basophils # 0.1 K/mcL (0.0-0.2); Eosinophils # 0.1 K/mcL (0.0-0.6); Lymphocytes # 2.1 K/mcL (0.6-4.6); Monocytes # 0.8 K/mcL (0.0-1.3); Neutrophils # 4.7 K/mcL (1.6-8.9)
[2019-03-14 18:42] LABS: INR 1.1; Prothrombin Time 12.5 Seconds (9.4-12.1)
[2019-03-14] MEDS ORDERED: 0.9 % Sodium Chloride 1,000 ML IVC SCH (18:45)
[2019-03-14 18:50] LABS: Alanine Aminotransferase 11 Units/L (7-52); Albumin 3.9 g/dL (3.5-5.7); Albumin/Globulin Ratio 1.4 (1.1-2.2); Alkaline Phosphatase 67 Units/L (34-104); Aspartate Amino Transferase 13 Units/L (13-39); BUN/Creatinine Ratio 21 (6-26); Bilirubin,Indirect 0.3 mg/dL (0.0-1.0); Bilirubin,Total 0.3 mg/dL (0.3-1.0); Blood Urea Nitrogen 15 mg/dL (8-23); Calcium 9.5 mg/dL (8.6-10.3); Carbon Dioxide 29 mEq/L (23-29); Chloride 102 mEq/L (98-107); Globulin 2.7 g/dL (2.4-3.5); Glucose 110 mg/dL (70-105); Osmolality,Calculated 287 (280-300); Potassium 4.6 mEq/L (3.5-5.1); Sodium 138 mEq/L (136-145); Total Protein 6.6 g/dL (6.4-8.9); eGFR For African Americans > 60 (> 60); eGFR For Non-African Americans > 60 (> 60)
[2019-03-14 18:53] LABS: Troponin I < 0.03 ng/mL (< 0.04)
[2019-03-14] MEDS ORDERED: Ondansetron ODT 4 MG TAB.RAPDIS SL PRN (20:09)
[2019-03-14] MEDS ORDERED: MOM Conc 10 ML UD.LIQ PO PRN (20:09)
[2019-03-14] MEDS ORDERED: Mag Hydrox/Al Hydrox/Simeth 30 ML UDC PO PRN (20:09)
[2019-03-14] MEDS ORDERED: Naloxone 0.4 MG/ML INJ IVP PRN (20:09)
[2019-03-14] MEDS ORDERED: Ondansetron 4 MG/2 ML VIAL IVP PRN (20:09)
[2019-03-14] MEDS: Ipratropium/Albuterol Neb 3 ML IH SCH (21:47)
[2019-03-14] MEDS: 0.9 % Sodium Chloride 1,000 ML IVC SCH (22:03)
[2019-03-15] MEDS: MethylPREDNISolone 40 MG/ML VIAL IVP SCH ×5 (00:28→23:17)
[2019-03-15] MEDS: 0.9 % Sodium Chloride 1,000 ML IVC SCH ×3 (03:39→23:18)
[2019-03-15] MEDS: Ipratropium/Albuterol Neb 3 ML IH SCH ×6 (04:12→21:18)
[2019-03-15] MEDS ORDERED: *HR* Enoxaparin 40 MG/0.4 ML SYRINGE SQ SCH (11:30)
[2019-03-15] MEDS: *HR* Enoxaparin 40 MG/0.4 ML SYRINGE SQ SCH (11:45)
[2019-03-15] MEDS ORDERED: *HR* LORazepam 2 MG/ML VIAL IVP ONE (13:28)
[2019-03-15] MEDS ORDERED: *HR* LORazepam 2 MG/ML VIAL ONE (13:29)
[2019-03-15] MEDS ORDERED: Albuterol 2.5 MG/3 ML NEBULIZER IH PRN (13:58)
[2019-03-15] MEDS ORDERED: hydrOXYzine pamoate 25 MG CAPSULE PO PRN (13:58)
[2019-03-15] MEDS: Budesonide/Formoterol 160/4.5 1 PUFF INH IH SCH ×2 (14:22→21:18)
[2019-03-15] MEDS: Loratadine 10 MG TABLET PO SCH (15:27)
[2019-03-15] MEDS: cefTRIAXone 2,000 MG in Water for inj. (sterile) 20 ML IVPB SCH (15:27)
[2019-03-15] MEDS: Azithromycin 500 MG in 0.9 % Sodium Chloride 250 ML IVPB SCH (15:28)
[2019-03-15] MEDS: (Roflumilast [Daliresp] 500 MCG) PO SCH (17:27)
[2019-03-15 22:00] LABS: Adenovirus Not Detected (Not Detect); Bordetella Pertussis Not Detected (Not Detect); Chlamydophila pneumoniae Not Detected (Not Detect); Coronavirus 229E Not Detected (Not Detect); Coronavirus HKU1 Not Detected (Not Detect); Coronavirus NL63 Not Detected (Not Detect); Coronavirus OC43 Not Detected (Not Detect); Human Metapneumovirus Not Detected (Not Detect); Human Rhinovirus/Enterovirus Not Detected (Not Detect); Influenza A Subtype 2009 H1 Not Detected (Not Detect); Influenza A Untypeable Not Detected (Not Detect); Influenza B Not Detected (Not Detect); Mycoplasma pneumoniae Not Detected (Not Detect); Parainfluenza Virus 1 Not Detected (Not Detect); Parainfluenza Virus 2 Not Detected (Not Detect); Parainfluenza Virus 3 Not Detected (Not Detect); Parainfluenza Virus 4 Not Detected (Not Detect); Respiratory Syncytial Virus Not Detected (Not Detect)
[2019-03-16] MEDS: Ipratropium/Albuterol Neb 3 ML IH SCH ×8 (00:49→23:57)
[2019-03-16] MEDS: MethylPREDNISolone 40 MG/ML VIAL IVP SCH ×4 (05:10→23:08)
[2019-03-16] MEDS: *HR* Enoxaparin 40 MG/0.4 ML SYRINGE SQ SCH (05:10)
[2019-03-16 07:05] LABS: Hematocrit 33.6 % (37.5-50.1); Hemoglobin 10.8 g/dL (12.9-16.9); Mean Corpuscular HGB Conc 32.1 g/dL (31.6-35.5); Mean Corpuscular Hemoglobin 31.2 pg (28.0-33.3); Mean Corpuscular Volume 97.1 fL (83.0-100.0); Mean Platelet Volume 9.5 fL (9.4-12.4); Platelet Count 211 K/mcL (140-400); Red Blood Count 3.46 M/mcL (4.19-5.50); Red Cell Distribution Width 13.4 % (11.5-14.5)
[2019-03-16 07:22] LABS: BUN/Creatinine Ratio 16 (6-26); Blood Urea Nitrogen 10 mg/dL (8-23); Calcium 9.3 mg/dL (8.6-10.3); Carbon Dioxide 33 mEq/L (23-29); Chloride 104 mEq/L (98-107); Glucose 118 mg/dL (70-105); Osmolality,Calculated 290 (280-300); Potassium 4.1 mEq/L (3.5-5.1); Sodium 140 mEq/L (136-145); eGFR For African Americans > 60 (> 60); eGFR For Non-African Americans > 60 (> 60)
[2019-03-16] MEDS: Loratadine 10 MG TABLET PO SCH (07:52)
[2019-03-16] MEDS: (Roflumilast [Daliresp] 500 MCG) PO SCH (07:53)
[2019-03-16] MEDS: Budesonide/Formoterol 160/4.5 1 PUFF INH IH SCH ×2 (07:59→21:39)
[2019-03-16] MEDS: 0.9 % Sodium Chloride 1,000 ML IVC SCH ×2 (11:06→23:08)
[2019-03-16] MEDS: Saline Nasal Spray 44 ML BOTTLE NS PRN (12:56)
[2019-03-16] MEDS: Fluticasone Propionate Nasal 50 MCG/SPRAY BOTTLE NS PRN (12:56)
[2019-03-16] MEDS ORDERED: *HR* LORazepam 2 MG/ML VIAL IVP ONE (13:24)
[2019-03-16] MEDS ORDERED: Ipratropium/Albuterol Neb 3 ML IH ONE (13:31)
[2019-03-16 14:05] LABS: ABG Base Excess -1 mEq/L (-2 to 3); ABG HCO3 29 mEq/L (21-27); ABG Oxygen Saturation 100 % (95-98); ABG PCO2 67 mmHg (35-45); ABG PH 7.24 pH Units (7.32-7.45); ABG PO2 226 mmHg (85-104); ABG TCO2 31 mEq/L (20-26)
[2019-03-16] MEDS: Azithromycin 500 MG in 0.9 % Sodium Chloride 250 ML IVPB SCH (15:22)
[2019-03-16] MEDS: cefTRIAXone 2,000 MG in Water for inj. (sterile) 20 ML IVPB SCH (15:22)
[2019-03-16 16:01] LABS: ABG Base Excess 2 mEq/L (-2 to 3); ABG HCO3 30 mEq/L (21-27); ABG Oxygen Saturation 97 % (95-98); ABG PCO2 58 mmHg (35-45); ABG PH 7.32 pH Units (7.32-7.45); ABG PO2 104 mmHg (85-104); ABG TCO2 32 mEq/L (20-26)
[2019-03-16] MEDS: *HR* LORazepam 0.5 MG TABLET PO PRN (16:34)
[2019-03-17] MEDS: Ipratropium/Albuterol Neb 3 ML IH SCH ×3 (04:16→11:45)
[2019-03-17] MEDS: *HR* LORazepam 0.5 MG TABLET PO PRN ×2 (04:43→12:02)
[2019-03-17] MEDS: *HR* Enoxaparin 40 MG/0.4 ML SYRINGE SQ SCH (04:43)
[2019-03-17] MEDS: MethylPREDNISolone 40 MG/ML VIAL IVP SCH ×3 (04:43→17:39)
[2019-03-17] MEDS: Loratadine 10 MG TABLET PO SCH (08:00)
[2019-03-17] MEDS: (Roflumilast [Daliresp] 500 MCG) PO SCH (08:05)
[2019-03-17] MEDS: Budesonide/Formoterol 160/4.5 1 PUFF INH IH SCH ×2 (08:25→21:07)
[2019-03-17] MEDS: Tiotropium 18 MCG inhalation IH SCH (12:00)
[2019-03-17] MEDS: Albuterol 2.5 MG/3 ML NEBULIZER IH SCH ×3 (12:00→21:07)
[2019-03-17] MEDS: Saline Nasal Spray 44 ML BOTTLE NS PRN ×2 (12:03→15:22)
[2019-03-17] MEDS: Fluticasone Propionate Nasal 50 MCG/SPRAY BOTTLE NS PRN (12:03)
[2019-03-17] MEDS: cefTRIAXone 2,000 MG in Water for inj. (sterile) 20 ML IVPB SCH (15:21)
[2019-03-17] MEDS: Azithromycin 500 MG in 0.9 % Sodium Chloride 250 ML IVPB SCH (15:21)
[2019-03-17] MEDS ORDERED: 0.9 % Sodium Chloride 1,000 ML ONE (15:45)
[2019-03-17] MEDS ORDERED: *HR* LORazepam 2 MG/ML VIAL IVP ONE (15:47)
[2019-03-17] MEDS ORDERED: *HR* LORazepam 2 MG/ML VIAL ONE (15:53)
[2019-03-18] MEDS: MethylPREDNISolone 40 MG/ML VIAL IVP SCH ×3 (00:17→11:29)
[2019-03-18] MEDS: Albuterol 2.5 MG/3 ML NEBULIZER IH SCH ×5 (00:24→16:02)
[2019-03-18] MEDS: *HR* Enoxaparin 40 MG/0.4 ML SYRINGE SQ SCH (05:52)
[2019-03-18] MEDS: Tiotropium 18 MCG inhalation IH SCH (07:37)
[2019-03-18] MEDS: Budesonide/Formoterol 160/4.5 1 PUFF INH IH SCH (07:42)
[2019-03-18] MEDS: Loratadine 10 MG TABLET PO SCH (08:11)
[2019-03-18] MEDS: (Roflumilast [Daliresp] 500 MCG) PO SCH (08:12)
[2019-03-18] MEDS: Saline Nasal Spray 44 ML BOTTLE NS PRN (09:19)
[2019-03-18] MEDS: Fluticasone Propionate Nasal 50 MCG/SPRAY BOTTLE NS PRN (09:22)
[2019-03-18 14:14] VITALS: BP 147/76
== END 2019-03-18 16:32 | disposition home or self-care (01) | DRG 190 ==
LOC: EMEROOPIK 18:03 → INPPIK 18:03
PROVIDERS: ADMIT Family Medicine; ATTEND Family Medicine

== ENCOUNTER 2019-05-30 21:11 | Observation (INO) ==
[2019-05-30] MEDS ORDERED: methylPREDNISolone 125 MG/2 ML VIAL IVP ONE (21:17)
[2019-05-30] MEDS ORDERED: 0.9 % Sodium Chloride 1,000 ML IVC ONE ×2 (21:17→22:49)
[2019-05-30] MEDS ORDERED: cefTRIAXone 2,000 MG in Water for inj. (sterile) 10 ML IVP ONE (21:17)
[2019-05-30] MEDS ORDERED: Azithromycin 500 MG in 0.9 % Sodium Chloride 250 ML IVPB ONE (21:17)
[2019-05-30] MEDS ORDERED: Albuterol 2.5 MG/3 ML NEBULIZER IH ONE (21:17)
[2019-05-30 21:58] LABS: Basophils # 0.1 K/mcL (0.0-0.2); Basophils % 0.8 %; Eosinophils % 0.2 %; Hematocrit 41.6 % (37.5-50.1); Hemoglobin 13.2 g/dL (12.9-16.9); Immature Granulocytes % 0.5 % (0-4); Lymphocytes # 0.8 K/mcL (0.6-4.6); Lymphocytes % 12.5 %; Mean Corpuscular HGB Conc 31.7 g/dL (31.6-35.5); Mean Corpuscular Hemoglobin 31.6 pg (28.0-33.3); Mean Corpuscular Volume 99.5 fL (83.0-100.0); Mean Platelet Volume 9.6 fL (9.4-12.4); Monocytes # 0.2 K/mcL (0.0-1.3); Monocytes % 2.9 %; Neutrophils # 5.4 K/mcL (1.6-8.9); Platelet Count 273 K/mcL (140-400); Red Blood Count 4.18 M/mcL (4.19-5.50); Red Cell Distribution Width 13.3 % (11.5-14.5); Segmented Neutrophils % 83.1 %; White Blood Count 6.5 K/mcL (4.3-11.1)
[2019-05-30 21:59] LABS: Prothrombin Time 11.5 Seconds (9.4-12.1)
[2019-05-30 22:02] LABS: Activated Partial Thrombo Time 30.4 Seconds (26.0-36.0)
[2019-05-30 22:11] LABS: Alanine Aminotransferase 13 Units/L (7-52); Albumin 4.3 g/dL (3.5-5.7); Albumin/Globulin Ratio 1.4 (1.1-2.2); Alkaline Phosphatase 66 Units/L (34-104); Aspartate Amino Transferase 17 Units/L (13-39); BUN/Creatinine Ratio 23 (6-26); Bilirubin,Direct 0.1 mg/dL (0.0-0.2); Bilirubin,Indirect 0.1 mg/dL (0.0-1.0); Bilirubin,Total 0.2 mg/dL (0.3-1.0); Blood Urea Nitrogen 18 mg/dL (8-23); Calcium 10.2 mg/dL (8.6-10.3); Carbon Dioxide 32 mEq/L (23-29); Chloride 98 mEq/L (98-107); Glucose 163 mg/dL (70-105); Osmolality,Calculated 291 (280-300); Potassium 5.3 mEq/L (3.5-5.1); Sodium 138 mEq/L (136-145); Total Protein 7.3 g/dL (6.4-8.9); Troponin I < 0.03 ng/mL (< 0.04); eGFR For African Americans > 60 (> 60); eGFR For Non-African Americans > 60 (> 60)
[2019-05-30] MEDS ORDERED: *HR* LORazepam 2 MG/ML VIAL IVP ONE (22:48)
[2019-05-31] MEDS ORDERED: Albuterol 2.5 MG/3 ML NEBULIZER IH PRN (00:28)
[2019-05-31] MEDS ORDERED: 0.9 % Sodium Chloride 1,000 ML IVC SCH (00:28)
[2019-05-31] MEDS ORDERED: Naloxone 0.4 MG/ML INJ IVP PRN (00:28)
[2019-05-31] MEDS ORDERED: MOM Conc 10 ML UD.LIQ PO PRN (00:28)
[2019-05-31] MEDS ORDERED: Ondansetron ODT 4 MG TAB.RAPDIS SL PRN (00:28)
[2019-05-31] MEDS ORDERED: hydrOXYzine pamoate 25 MG CAPSULE PO PRN (00:28)
[2019-05-31] MEDS ORDERED: Sennosides/Docusate Sodium TABLET PO PRN (00:28)
[2019-05-31] MEDS: Ipratropium/Albuterol Neb 3 ML IH SCH ×2 (04:15→10:04)
[2019-05-31] MEDS: MethylPREDNISolone 40 MG/ML VIAL IVP SCH ×2 (06:05→11:00)
[2019-05-31] MEDS: 0.9 % Sodium Chloride 1,000 ML IVC SCH ×2 (06:06→10:58)
[2019-05-31] MEDS ORDERED: 0.9 % Sodium Chloride 1,000 ML IVC ONE (08:01)
[2019-05-31] MEDS ORDERED: Lactobacillus 1 EACH CAP.SPRINK PO SCH (09:00)
[2019-05-31] MEDS ORDERED: Fluticasone Propionate Nasal 50 MCG/SPRAY BOTTLE NS SCH (09:15)
[2019-05-31 09:30] LABS: Bilirubin,Urine Negative (Negative); Blood,Urine Negative (Negative); Clarity,Urine Clear (Clear); Color,Urine Yellow (Yellow); Glucose,Urine (UA) Normal (Normal); Ketones,Urine Negative (Negative); Leukocyte Esterase,Urine Negative (Negative); Nitrite,Urine Negative (Negative); PH,Urine 5.5 pH Units (5.0-8.0); Protein,Urine Negative (Neg-Trace); Specific Gravity,Urine >= 1.030 (1.010-1.025); Urobilinogen,Urine Normal (Normal)
[2019-05-31] MEDS: Multivit/Ca/Min/Fe/FA 1 TAB TABLET PO SCH (10:54)
[2019-05-31 13:04] LABS: ABG Base Excess -5 mEq/L (-2 to 3); ABG HCO3 27 mEq/L (21-27); ABG Oxygen Saturation 75 % (95-98); ABG PCO2 91 mmHg (35-45); ABG PH 7.08 pH Units (7.32-7.45); ABG PO2 57 mmHg (85-104); ABG TCO2 30 mEq/L (20-26); Blood Gas Pressure Support 14 cm H2O
[2019-05-31 14:09] LABS: ABG Base Excess -2 mEq/L (-2 to 3); ABG HCO3 27 mEq/L (21-27); ABG Oxygen Saturation 98 % (95-98); ABG PCO2 67 mmHg (35-45); ABG PH 7.21 pH Units (7.32-7.45); ABG PO2 130 mmHg (85-104); ABG TCO2 29 mEq/L (20-26); Blood Gas Pressure Support 18 cm H2O
[2019-05-31 14:30] LABS: Hematocrit 33.7 % (37.5-50.1); Hemoglobin 10.6 g/dL (12.9-16.9); Mean Corpuscular HGB Conc 31.5 g/dL (31.6-35.5); Mean Corpuscular Hemoglobin 31.8 pg (28.0-33.3); Mean Corpuscular Volume 101.2 fL (83.0-100.0); Mean Platelet Volume 10.1 fL (9.4-12.4); Platelet Count 195 K/mcL (140-400); Red Blood Count 3.33 M/mcL (4.19-5.50); Red Cell Distribution Width 13.5 % (11.5-14.5)
[2019-05-31 14:39] VITALS: BP 162/97
[2019-05-31 14:39] LABS: BUN/Creatinine Ratio 24 (6-26); Blood Urea Nitrogen 14 mg/dL (8-23); Calcium 8.8 mg/dL (8.6-10.3); Carbon Dioxide 31 mEq/L (23-29); Chloride 109 mEq/L (98-107); Glucose 107 mg/dL (70-105); Osmolality,Calculated 297 (280-300); Sodium 143 mEq/L (136-145); eGFR For African Americans > 60 (> 60); eGFR For Non-African Americans > 60 (> 60)
[2019-05-31] MEDS ORDERED: Azithromycin 500 MG in 0.9 % Sodium Chloride 250 ML IVPB SCH (15:00)
[2019-05-31] MEDS ORDERED: cefTRIAXone 2,000 MG in 0.9 % Sodium Chloride Mini Bag 100 ML IVPB SCH (15:00)
[2019-05-31 18:28] LABS: ABG Base Excess 3 mEq/L (-2 to 3); ABG HCO3 30 mEq/L (21-27); ABG Oxygen Saturation 96 % (95-98); ABG PCO2 60 mmHg (35-45); ABG PH 7.31 pH Units (7.32-7.45); ABG PO2 92 mmHg (85-104); ABG TCO2 32 mEq/L (20-26)
[2019-06-01] MEDS ORDERED: *HR* Enoxaparin 40 MG/0.4 ML SYRINGE SQ SCH (06:00)
== END 2019-05-31 16:03 | disposition short-term general hospital (02) ==
LOC: EMEROOPIK 21:11 → INPPIK 21:11
PROVIDERS: ADMIT Family Medicine; ATTEND Family Medicine

== ENCOUNTER 2019-06-13 02:01 | Inpatient (IN) ==
[2019-06-13] MEDS ORDERED: methylPREDNISolone 125 MG/2 ML VIAL IVP ONE (02:29)
[2019-06-13] MEDS ORDERED: Azithromycin 500 MG in 0.9 % Sodium Chloride 250 ML IVPB ONE (02:29)
[2019-06-13] MEDS ORDERED: cefTRIAXone 1,000 MG in Water for inj. (sterile) 10 ML IVP ONE (02:29)
[2019-06-13] MEDS ORDERED: 0.9 % Sodium Chloride 1,000 ML IVC ONE (02:33)
[2019-06-13] MEDS ORDERED: HydrOXYzine 100 MG/2 ML VIAL IM ONE (02:33)
[2019-06-13 02:38] LABS: Basophils # 0.1 K/mcL (0.0-0.2); Basophils % 0.5 %; Eosinophils # 0.1 K/mcL (0.0-0.6); Eosinophils % 0.5 %; Hematocrit 43.5 % (37.5-50.1); Hemoglobin 13.7 g/dL (12.9-16.9); Immature Granulocytes % 0.6 % (0-4); Lymphocytes # 1.5 K/mcL (0.6-4.6); Lymphocytes % 12.1 %; Mean Corpuscular HGB Conc 31.5 g/dL (31.6-35.5); Mean Corpuscular Hemoglobin 31.9 pg (28.0-33.3); Mean Corpuscular Volume 101.4 fL (83.0-100.0); Mean Platelet Volume 9.4 fL (9.4-12.4); Monocytes # 0.7 K/mcL (0.0-1.3); Monocytes % 5.3 %; Neutrophils # 10.2 K/mcL (1.6-8.9); Platelet Count 303 K/mcL (140-400); Red Blood Count 4.29 M/mcL (4.19-5.50); Red Cell Distribution Width 14.1 % (11.5-14.5); White Blood Count 12.6 K/mcL (4.3-11.1)
[2019-06-13 02:40] LABS: ABG Base Excess 1 mEq/L (-2 to 3); ABG HCO3 30 mEq/L (21-27); ABG Oxygen Saturation 95 % (95-98); ABG PCO2 61 mmHg (35-45); ABG PO2 88 mmHg (85-104); ABG TCO2 32 mEq/L (20-26); Blood Gas Pressure Support 6 cm H2O
[2019-06-13 02:49] LABS: Troponin I < 0.03 ng/mL (< 0.04)
[2019-06-13 03:24] LABS: BUN/Creatinine Ratio 32 (6-26); Blood Urea Nitrogen 28 mg/dL (8-23); Calcium 10.2 mg/dL (8.6-10.3); Carbon Dioxide 29 mEq/L (23-29); Chloride 100 mEq/L (98-107); Glucose 174 mg/dL (70-105); Osmolality,Calculated 298 (280-300); Potassium 5.7 mEq/L (3.5-5.1); Sodium 139 mEq/L (136-145); eGFR For African Americans > 60 (> 60); eGFR For Non-African Americans > 60 (> 60)
[2019-06-13] MEDS ORDERED: Calcium Gluconate 1gm/50mL 1 GM/50 ML BAG IVPB PRN (03:36)
[2019-06-13] MEDS ORDERED: *HR* Dextrose 50 % in Water (Syg) 50 ML SYRINGE IVP ONE (03:36)
[2019-06-13] MEDS ORDERED: Insulin Human Regular 10 UNIT in 0.9 % Sodium Chloride 10 ML IV ONE (03:36)
[2019-06-13] MEDS ORDERED: Levalbuterol Neb 1.25 MG/3 ML IH PRN (05:22)
[2019-06-13] MEDS ORDERED: IPRATROPIUM BROMIDE NS PRN (05:22)
[2019-06-13] MEDS ORDERED: Albuterol 2.5 MG/3 ML NEBULIZER IH PRN ×2 (05:22→07:48)
[2019-06-13] MEDS ORDERED: Loratadine/Pseudophed (12 HR) 1 EACH TABLET PO PRN (05:22)
[2019-06-13] MEDS: Lactobacillus 1 EACH CAP.SPRINK PO SCH (08:28)
[2019-06-13] MEDS: Multivit/Ca/Min/Fe/FA 1 TAB TABLET PO SCH (08:28)
[2019-06-13] MEDS: Roflumilast [Daliresp] 500 MCG PO SCH (08:30)
[2019-06-13] MEDS ORDERED: predniSONE 20 MG TABLET PO SCH (09:00)
[2019-06-13] MEDS ORDERED: Tiotropium 18 MCG inhalation IH SCH (09:00)
[2019-06-13] MEDS ORDERED: Ipratropium/Albuterol Neb 3 ML IH SCH (10:00)
[2019-06-13] MEDS: Ipratropium/Albuterol Neb 3 ML IH SCH ×3 (10:39→22:04)
[2019-06-13] MEDS: Budesonide/Formoterol 160/4.5 1 PUFF INH IH SCH ×2 (10:39→22:04)
[2019-06-13] MEDS: MethylPREDNISolone 40 MG/ML VIAL IVP SCH ×3 (11:46→23:06)
[2019-06-13 12:03] LABS: ABG Base Excess 0 mEq/L (-2 to 3); ABG HCO3 28 mEq/L (21-27); ABG Oxygen Saturation 93 % (95-98); ABG PCO2 59 mmHg (35-45); ABG PH 7.28 pH Units (7.32-7.45); ABG PO2 78 mmHg (85-104); ABG TCO2 30 mEq/L (20-26)
[2019-06-13 12:30] LABS: Basophils % 0.1 %; Hematocrit 37.7 % (37.5-50.1); Hemoglobin 11.6 g/dL (12.9-16.9); Immature Granulocytes % 1.2 % (0-4); Lymphocytes # 0.7 K/mcL (0.6-4.6); Lymphocytes % 7.6 %; Mean Corpuscular HGB Conc 30.8 g/dL (31.6-35.5); Mean Corpuscular Hemoglobin 31.4 pg (28.0-33.3); Mean Corpuscular Volume 102.2 fL (83.0-100.0); Mean Platelet Volume 9.3 fL (9.4-12.4); Monocytes # 0.2 K/mcL (0.0-1.3); Monocytes % 2.3 %; Platelet Count 242 K/mcL (140-400); Red Blood Count 3.69 M/mcL (4.19-5.50); Segmented Neutrophils % 88.8 %; White Blood Count 9.1 K/mcL (4.3-11.1)
[2019-06-13 12:32] LABS: BUN/Creatinine Ratio 36 (6-26); Blood Urea Nitrogen 26 mg/dL (8-23); Calcium 9.4 mg/dL (8.6-10.3); Carbon Dioxide 31 mEq/L (23-29); Chloride 101 mEq/L (98-107); Glucose 81 mg/dL (70-105); Osmolality,Calculated 292 (280-300); Potassium 4.9 mEq/L (3.5-5.1); Sodium 139 mEq/L (136-145); eGFR For African Americans > 60 (> 60); eGFR For Non-African Americans > 60 (> 60)
[2019-06-13 15:01] LABS: Adenovirus Not Detected (Not Detect); Bordetella Pertussis Not Detected (Not Detect); Chlamydophila pneumoniae Not Detected (Not Detect); Coronavirus 229E Not Detected (Not Detect); Coronavirus HKU1 Not Detected (Not Detect); Coronavirus NL63 Not Detected (Not Detect); Coronavirus OC43 Not Detected (Not Detect); Human Metapneumovirus Not Detected (Not Detect); Human Rhinovirus/Enterovirus Not Detected (Not Detect); Influenza A Subtype 2009 H1 Not Detected (Not Detect); Influenza B Not Detected (Not Detect); Mycoplasma pneumoniae Not Detected (Not Detect); Parainfluenza Virus 1 Not Detected (Not Detect); Parainfluenza Virus 2 Not Detected (Not Detect); Parainfluenza Virus 3 Not Detected (Not Detect); Parainfluenza Virus 4 Not Detected (Not Detect); Respiratory Syncytial Virus Not Detected (Not Detect)
[2019-06-13] MEDS: Cefepime HCl 2,000 MG in 0.9 % Sodium Chloride Mini Bag 100 ML IVPB SCH ×2 (16:57→23:06)
[2019-06-13] MEDS: hydrOXYzine pamoate 25 MG CAPSULE PO PRN (20:35)
[2019-06-14] MEDS: Ipratropium/Albuterol Neb 3 ML IH SCH ×4 (04:05→21:28)
[2019-06-14] MEDS: MethylPREDNISolone 40 MG/ML VIAL IVP SCH ×4 (04:58→16:11)
[2019-06-14] MEDS: Azithromycin 500 MG in 0.9 % Sodium Chloride 250 ML IVPB SCH (04:59)
[2019-06-14] MEDS: *HR* Enoxaparin 40 MG/0.4 ML SYRINGE SQ SCH (05:02)
[2019-06-14] MEDS: Budesonide/Formoterol 160/4.5 1 PUFF INH IH SCH ×2 (08:37→21:28)
[2019-06-14] MEDS ORDERED: predniSONE 20 MG TABLET PO SCH (09:00)
[2019-06-14] MEDS: Roflumilast [Daliresp] 500 MCG PO SCH (09:28)
[2019-06-14] MEDS: Cefepime HCl 2,000 MG in 0.9 % Sodium Chloride Mini Bag 100 ML IVPB SCH ×2 (09:28→17:00)
[2019-06-14] MEDS: Multivit/Ca/Min/Fe/FA 1 TAB TABLET PO SCH (09:29)
[2019-06-14] MEDS: Lactobacillus 1 EACH CAP.SPRINK PO SCH (09:29)
[2019-06-14 10:17] LABS: Hemoglobin 11.6 g/dL (12.9-16.9); Mean Corpuscular HGB Conc 31.4 g/dL (31.6-35.5); Mean Corpuscular Volume 101.9 fL (83.0-100.0); Mean Platelet Volume 9.5 fL (9.4-12.4); Platelet Count 242 K/mcL (140-400); Red Blood Count 3.63 M/mcL (4.19-5.50); Red Cell Distribution Width 13.9 % (11.5-14.5); White Blood Count 6.9 K/mcL (4.3-11.1)
[2019-06-14 10:29] LABS: ABG Base Excess 1 mEq/L (-2 to 3); ABG HCO3 28 mEq/L (21-27); ABG Oxygen Saturation 97 % (95-98); ABG PCO2 54 mmHg (35-45); ABG PH 7.33 pH Units (7.32-7.45); ABG PO2 102 mmHg (85-104); ABG TCO2 30 mEq/L (20-26)
[2019-06-14 10:30] LABS: BUN/Creatinine Ratio 25 (6-26); Blood Urea Nitrogen 22 mg/dL (8-23); Calcium 9.9 mg/dL (8.6-10.3); Carbon Dioxide 32 mEq/L (23-29); Chloride 101 mEq/L (98-107); Glucose 175 mg/dL (70-105); Osmolality,Calculated 300 (280-300); Potassium 4.5 mEq/L (3.5-5.1); Sodium 141 mEq/L (136-145); eGFR For African Americans > 60 (> 60); eGFR For Non-African Americans > 60 (> 60)
[2019-06-14] MEDS: Sennosides/Docusate Sodium TABLET PO PRN (11:19)
[2019-06-14] MEDS: hydrOXYzine pamoate 25 MG CAPSULE PO PRN (11:23)
[2019-06-14] MEDS ORDERED: 0.9 % Sodium Chloride 1,000 ML IVC ONE ×2 (11:32→14:26)
[2019-06-14] MEDS ORDERED: Bisacodyl 10 MG RECTAL SUPPOSITORY RC PRN (11:38)
[2019-06-14] MEDS: Lactulose Oral Soln 20 GM/30 ML UDC PO SCH ×3 (13:00→20:27)
[2019-06-14] MEDS: *HR* LORazepam 0.5 MG TABLET PO SCH ×2 (15:42→20:40)
[2019-06-14] MEDS: Sennosides/Docusate Sodium TABLET PO SCH (20:27)
[2019-06-15] MEDS: MethylPREDNISolone 40 MG/ML VIAL IVP SCH ×3 (00:13→17:13)
[2019-06-15] MEDS: Ipratropium/Albuterol Neb 3 ML IH SCH ×4 (04:17→22:14)
[2019-06-15] MEDS: Azithromycin 500 MG in 0.9 % Sodium Chloride 250 ML IVPB SCH (04:20)
[2019-06-15] MEDS: *HR* Enoxaparin 40 MG/0.4 ML SYRINGE SQ SCH (06:15)
[2019-06-15] MEDS: Cefepime HCl 2,000 MG in 0.9 % Sodium Chloride Mini Bag 100 ML IVPB SCH ×2 (06:16→16:35)
[2019-06-15] MEDS: Sennosides/Docusate Sodium TABLET PO SCH ×2 (09:04→20:02)
[2019-06-15] MEDS: Lactobacillus 1 EACH CAP.SPRINK PO SCH (09:04)
[2019-06-15] MEDS: Multivit/Ca/Min/Fe/FA 1 TAB TABLET PO SCH (09:04)
[2019-06-15] MEDS: *HR* LORazepam 0.5 MG TABLET PO SCH ×2 (09:04→19:56)
[2019-06-15] MEDS: Roflumilast [Daliresp] 500 MCG PO SCH (09:05)
[2019-06-15] MEDS: Lactulose Oral Soln 20 GM/30 ML UDC PO SCH ×3 (09:05→19:56)
[2019-06-15] MEDS: Budesonide/Formoterol 160/4.5 1 PUFF INH IH SCH ×2 (09:07→22:14)
[2019-06-15 10:07] LABS: Hematocrit 34.7 % (37.5-50.1); Mean Corpuscular HGB Conc 31.7 g/dL (31.6-35.5); Mean Corpuscular Hemoglobin 32.4 pg (28.0-33.3); Mean Corpuscular Volume 102.4 fL (83.0-100.0); Mean Platelet Volume 9.5 fL (9.4-12.4); Platelet Count 224 K/mcL (140-400); Red Blood Count 3.39 M/mcL (4.19-5.50); Red Cell Distribution Width 14.2 % (11.5-14.5); White Blood Count 8.9 K/mcL (4.3-11.1)
[2019-06-15 10:51] LABS: BUN/Creatinine Ratio 28 (6-26); Blood Urea Nitrogen 20 mg/dL (8-23); Calcium 9.4 mg/dL (8.6-10.3); Carbon Dioxide 31 mEq/L (23-29); Chloride 105 mEq/L (98-107); Glucose 124 mg/dL (70-105); Osmolality,Calculated 298 (280-300); Potassium 4.9 mEq/L (3.5-5.1); Sodium 142 mEq/L (136-145); eGFR For African Americans > 60 (> 60); eGFR For Non-African Americans > 60 (> 60)
[2019-06-15] MEDS ORDERED: Saline Nasal Spray 44 ML BOTTLE NS PRN (16:48)
[2019-06-15] MEDS: Sennosides/Docusate Sodium TABLET PO PRN (19:56)
[2019-06-16] MEDS: Ipratropium/Albuterol Neb 3 ML IH SCH ×2 (04:12→10:04)
[2019-06-16] MEDS: Cefepime HCl 2,000 MG in 0.9 % Sodium Chloride Mini Bag 100 ML IVPB SCH (05:43)
[2019-06-16] MEDS: *HR* Enoxaparin 40 MG/0.4 ML SYRINGE SQ SCH (05:50)
[2019-06-16 06:58] VITALS: BP 118/67
[2019-06-16] MEDS: Lactulose Oral Soln 20 GM/30 ML UDC PO SCH (08:33)
[2019-06-16] MEDS: Multivit/Ca/Min/Fe/FA 1 TAB TABLET PO SCH (08:35)
[2019-06-16] MEDS: Roflumilast [Daliresp] 500 MCG PO SCH (08:36)
[2019-06-16] MEDS: *HR* LORazepam 0.5 MG TABLET PO SCH (08:36)
[2019-06-16] MEDS: Lactobacillus 1 EACH CAP.SPRINK PO SCH (08:36)
[2019-06-16] MEDS: Sennosides/Docusate Sodium TABLET PO SCH (08:36)
[2019-06-16] MEDS ORDERED: Azithromycin 250 MG TABLET PO SCH (09:00)
[2019-06-16] MEDS ORDERED: predniSONE 20 MG TABLET PO SCH (09:00)
[2019-06-16] MEDS: Budesonide/Formoterol 160/4.5 1 PUFF INH IH SCH (10:04)
== END 2019-06-16 11:58 | disposition home health service (06) | DRG 871 ==
LOC: INPPIK 02:01 → EMEROOPIK 02:01 → INPPIK 04:30
PROVIDERS: ADMIT Family Medicine; ATTEND Family Medicine

== ENCOUNTER 2020-08-26 20:26 | Inpatient (IN) ==
[2020-08-26] MEDS ORDERED: Ipratropium/Albuterol Neb 3 ML IH ONE (20:51)
[2020-08-26 21:20] LABS: Hematocrit 37.2 % (37.5-50.1); Hemoglobin 11.6 g/dL (12.9-16.9); Mean Corpuscular HGB Conc 31.2 g/dL (31.6-35.5); Mean Corpuscular Hemoglobin 32.1 pg (28.0-33.3); Mean Platelet Volume 9.5 fL (9.4-12.4); Platelet Count 248 K/mcL (140-400); Red Blood Count 3.61 M/mcL (4.19-5.50); Red Cell Distribution Width 13.1 % (11.5-14.5); White Blood Count 7.5 K/mcL (4.3-11.1)
[2020-08-26] MEDS ORDERED: methylPREDNISolone 125 MG/2 ML VIAL IVP ONE (21:24)
[2020-08-26 21:27] LABS: ABG Base Excess 13 mEq/L (-2 to 3); ABG HCO3 43 mEq/L (21-27); ABG Oxygen Saturation 81 % (95-98); ABG PCO2 81 mmHg (35-45); ABG PH 7.33 pH Units (7.32-7.45); ABG PO2 52 mmHg (85-104); ABG TCO2 45 mEq/L (20-26)
[2020-08-26 21:43] LABS: BUN/Creatinine Ratio 23 (6-26); Blood Urea Nitrogen 14 mg/dL (8-23); Calcium 10.6 mg/dL (8.6-10.3); Carbon Dioxide 42 mEq/L (23-29); Chloride 96 mEq/L (98-107); Glucose 141 mg/dL (70-105); Osmolality,Calculated 297 (280-300); Potassium 4.4 mEq/L (3.5-5.1); Sodium 142 mEq/L (136-145); eGFR For African Americans > 60 (> 60); eGFR For Non-African Americans > 60 (> 60)
[2020-08-26 21:59] LABS: Acanthocytes 1+ (Not Present); Lymphocytes # 1.5 K/mcL (0.6-4.6); Monocytes # 1.2 K/mcL (0.0-1.3); Neutrophils # 4.8 K/mcL (1.6-8.9)
[2020-08-26 22:00] LABS: Dohle Bodies Present (Not Present); Large Platelets Present (Not Present); Platelet Estimate Normal (Normal); Polychromasia 1+ (Not Present); Stomatocytes 1+ (Not Present)
[2020-08-26] MEDS ORDERED: Azithromycin 500 MG in 0.9 % Sodium Chloride 250 ML IVPB ONE (22:22)
[2020-08-26] MEDS ORDERED: cefTRIAXone 1,000 MG in Water for inj. (sterile) 10 ML IVP ONE (22:26)
[2020-08-26] MEDS ORDERED: Ondansetron 4 MG/2 ML VIAL IVP ONE (22:26)
[2020-08-27] MEDS ORDERED: hydrOXYzine pamoate 25 MG CAPSULE PO PRN (00:19)
[2020-08-27] MEDS ORDERED: Sennosides 8.6 MG TABLET PO PRN (00:43)
[2020-08-27 01:40] LABS: Adenovirus Not Detected (Not Detect); Bordetella Pertussis Not Detected (Not Detect); Chlamydophila pneumoniae Not Detected (Not Detect); Coronavirus 229E Not Detected (Not Detect); Coronavirus HKU1 Not Detected (Not Detect); Coronavirus NL63 Not Detected (Not Detect); Coronavirus OC43 Not Detected (Not Detect); Human Metapneumovirus Not Detected (Not Detect); Human Rhinovirus/Enterovirus Not Detected (Not Detect); Influenza A Subtype 2009 H1 Not Detected (Not Detect); Influenza B Not Detected (Not Detect); Mycoplasma pneumoniae Not Detected (Not Detect); Parainfluenza Virus 1 Not Detected (Not Detect); Parainfluenza Virus 2 Not Detected (Not Detect); Parainfluenza Virus 3 Not Detected (Not Detect); Parainfluenza Virus 4 Not Detected (Not Detect); Respiratory Syncytial Virus Not Detected (Not Detect); SARS-CoV-2 Not Detected (Not Detect)
[2020-08-27] MEDS: Ipratropium/Albuterol Neb 3 ML IH SCH ×2 (02:02→03:56)
[2020-08-27] MEDS ORDERED: *HR* LORazepam 2 MG/ML VIAL IVP ONE (02:35)
[2020-08-27 02:56] VITALS: BP 116/71
[2020-08-27 03:32] LABS: ABG Base Excess 13 mEq/L (-2 to 3); ABG HCO3 43 mEq/L (21-27); ABG Oxygen Saturation 88 % (95-98); ABG PCO2 84 mmHg (35-45); ABG PH 7.32 pH Units (7.32-7.45); ABG PO2 63 mmHg (85-104); ABG TCO2 45 mEq/L (20-26); Blood Gas Modality BiLevel
[2020-08-27] MEDS ORDERED: MethylPREDNISolone 40 MG/ML VIAL IVP SCH (04:00)
[2020-08-27 04:50] LABS: ABG Base Excess 12 mEq/L (-2 to 3); ABG HCO3 42 mEq/L (21-27); ABG Oxygen Saturation 89 % (95-98); ABG PCO2 86 mmHg (35-45); ABG PO2 67 mmHg (85-104); ABG TCO2 45 mEq/L (20-26); Blood Gas VT 450 cc
[2020-08-27] MEDS ORDERED: *HR* Heparin 5,000 UNIT/ML VIAL SQ SCH (06:00)
[2020-08-27] MEDS ORDERED: Azithromycin 500 MG in 0.9 % Sodium Chloride 250 ML IVPB SCH (09:00)
[2020-08-27] MEDS ORDERED: cefTRIAXone 1,000 MG in 0.9 % Sodium Chloride Mini Bag 100 ML IVPB SCH (09:00)
[2020-08-27] MEDS ORDERED: (Roflumilast [Daliresp] 500 MCG Tablet) PO SCH (09:00)
== END 2020-08-27 07:20 | disposition short-term general hospital (02) | DRG 189 ==
LOC: EMEROOPIK 20:26 → INPPIK 23:33
PROVIDERS: ADMIT Internal Medicine; ATTEND Internal Medicine

== ENCOUNTER 2021-01-22 16:39 | Observation (INO) ==
[2021-01-22] MEDS ORDERED: levoFLOXacin 750 MG/150 ML 750 MG/150 ML BAG IVPB ONE (16:41)
[2021-01-22] MEDS ORDERED: methylPREDNISolone 125 MG/2 ML VIAL IVP ONE (16:41)
[2021-01-22] MEDS ORDERED: Albuterol 2.5 MG/3 ML NEBULIZER IH ONE (16:41)
[2021-01-22] MEDS ORDERED: 0.9 % Sodium Chloride 1,000 ML IVC ONE (16:41)
[2021-01-22 17:18] LABS: Basophils % 0.1 %; Eosinophils % 0.1 %; Hematocrit 35.2 % (37.5-50.1); Hemoglobin 10.6 g/dL (12.9-16.9); Immature Granulocytes % 0.4 % (0-4); Lymphocytes # 0.6 K/mcL (0.6-4.6); Lymphocytes % 5.1 %; Mean Corpuscular HGB Conc 30.1 g/dL (31.6-35.5); Mean Corpuscular Hemoglobin 28.6 pg (28.0-33.3); Mean Corpuscular Volume 95.1 fL (83.0-100.0); Mean Platelet Volume 9.1 fL (9.4-12.4); Monocytes # 0.4 K/mcL (0.0-1.3); Monocytes % 3.7 %; Neutrophils # 10.2 K/mcL (1.6-8.9); Platelet Count 295 K/mcL (140-400); Red Cell Distribution Width 13.4 % (11.5-14.5); Segmented Neutrophils % 90.6 %; White Blood Count 11.3 K/mcL (4.3-11.1)
[2021-01-22 17:33] LABS: BUN/Creatinine Ratio 25 (6-26); Blood Urea Nitrogen 15 mg/dL (8-23); Calcium 9.2 mg/dL (8.6-10.3); Carbon Dioxide 37 mEq/L (23-29); Chloride 98 mEq/L (98-107); Glucose 120 mg/dL (70-105); Osmolality,Calculated 290 (280-300); Potassium 4.5 mEq/L (3.5-5.1); Sodium 139 mEq/L (136-145); eGFR For African Americans > 60 (> 60); eGFR For Non-African Americans > 60 (> 60)
[2021-01-22 17:37] LABS: Troponin I 0.03 ng/mL (< 0.04)
[2021-01-22 17:50] LABS: ABG Base Excess 4 mEq/L (-2 to 3); ABG HCO3 31 mEq/L (21-27); ABG Oxygen Saturation 96 % (95-98); ABG PCO2 55 mmHg (35-45); ABG PH 7.36 pH Units (7.32-7.45); ABG PO2 85 mmHg (85-104); ABG TCO2 33 mEq/L (20-26); Blood Gas Modality BiLevel
[2021-01-22] MEDS ORDERED: Acetaminophen 325 MG TABLET PO PRN (18:26)
[2021-01-22] MEDS ORDERED: Naloxone 0.4 MG/ML INJ IVP PRN (18:26)
[2021-01-22] MEDS ORDERED: Ondansetron 4 MG/2 ML VIAL IVP PRN (18:26)
[2021-01-22] MEDS ORDERED: MOM Conc 10 ML UD.LIQ PO PRN (18:26)
[2021-01-22] MEDS ORDERED: Mag Hydrox/Al Hydrox/Simeth 30 ML UDC PO PRN (18:26)
[2021-01-22] MEDS: hydrOXYzine pamoate 25 MG CAPSULE PO PRN (20:50)
[2021-01-22] MEDS: Budesonide/Formoterol 160/4.5 1 PUFF INH IH SCH (22:58)
[2021-01-22] MEDS: MethylPREDNISolone 40 MG/ML VIAL IVP SCH (23:59)
[2021-01-23] MEDS: Ipratropium/Albuterol Neb 3 ML IH PRN ×2 (01:55→08:31)
[2021-01-23 07:25] LABS: Hematocrit 34.2 % (37.5-50.1); Hemoglobin 10.3 g/dL (12.9-16.9); Immature Granulocytes % 0.5 % (0-4); Lymphocytes # 0.4 K/mcL (0.6-4.6); Lymphocytes % 7.2 %; Mean Corpuscular HGB Conc 30.1 g/dL (31.6-35.5); Mean Corpuscular Hemoglobin 28.6 pg (28.0-33.3); Mean Platelet Volume 9.4 fL (9.4-12.4); Monocytes # 0.2 K/mcL (0.0-1.3); Monocytes % 2.8 %; Neutrophils # 5.4 K/mcL (1.6-8.9); Platelet Count 300 K/mcL (140-400); Red Cell Distribution Width 13.5 % (11.5-14.5); Segmented Neutrophils % 89.5 %; White Blood Count 6.1 K/mcL (4.3-11.1)
[2021-01-23 07:37] LABS: BUN/Creatinine Ratio 28 (6-26); Blood Urea Nitrogen 19 mg/dL (8-23); Calcium 9.3 mg/dL (8.6-10.3); Carbon Dioxide 34 mEq/L (23-29); Chloride 97 mEq/L (98-107); Glucose 101 mg/dL (70-105); Osmolality,Calculated 288 (280-300); Potassium 4.6 mEq/L (3.5-5.1); Sodium 138 mEq/L (136-145); eGFR For African Americans > 60 (> 60); eGFR For Non-African Americans > 60 (> 60)
[2021-01-23] MEDS: Budesonide/Formoterol 160/4.5 1 PUFF INH IH SCH ×2 (08:31→22:56)
[2021-01-23] MEDS: hydrOXYzine pamoate 25 MG CAPSULE PO PRN (09:08)
[2021-01-23] MEDS: Roflumilast [Daliresp] 500 MCG Tablet PO SCH (09:09)
[2021-01-23] MEDS: MethylPREDNISolone 40 MG/ML VIAL IVP SCH ×3 (09:11→20:45)
[2021-01-23] MEDS ORDERED: Azithromycin 250 MG TABLET PO ONE (12:00)
[2021-01-23] MEDS: Levalbuterol Neb 1.25 MG/3 ML IH SCH ×3 (14:36→22:56)
[2021-01-23] MEDS ORDERED: Levalbuterol Neb 1.25 MG/3 ML IH SCH (16:00)
[2021-01-23] MEDS ORDERED: Saline Nasal Spray 44 ML BOTTLE NS PRN (16:27)
[2021-01-23] MEDS: *HR* LORazepam 0.5 MG TABLET PO PRN (20:45)
[2021-01-23] MEDS ORDERED: QUEtiapine Fumarate 25 MG TABLET PO ONE (21:00)
[2021-01-24] MEDS: Levalbuterol Neb 1.25 MG/3 ML IH SCH ×3 (05:07→17:10)
[2021-01-24] MEDS ORDERED: *HR* Enoxaparin 40 MG/0.4 ML SYRINGE SQ SCH (06:00)
[2021-01-24 08:03] VITALS: BP 108/66; PULSE 59; TEMP 98.6
[2021-01-24 08:17] LABS: Basophils % 0.1 %; Hematocrit 32.2 % (37.5-50.1); Hemoglobin 9.9 g/dL (12.9-16.9); Immature Granulocytes % 0.5 % (0-4); Lymphocytes % 9.5 %; Mean Corpuscular HGB Conc 30.7 g/dL (31.6-35.5); Mean Corpuscular Hemoglobin 28.8 pg (28.0-33.3); Mean Corpuscular Volume 93.6 fL (83.0-100.0); Mean Platelet Volume 9.3 fL (9.4-12.4); Monocytes # 0.9 K/mcL (0.0-1.3); Monocytes % 7.9 %; Platelet Count 286 K/mcL (140-400); Red Blood Count 3.44 M/mcL (4.19-5.50); Red Cell Distribution Width 13.8 % (11.5-14.5); White Blood Count 10.8 K/mcL (4.3-11.1)
[2021-01-24 08:21] LABS: Neutrophils # 8.9 K/mcL (1.6-8.9)
[2021-01-24] MEDS: MethylPREDNISolone 40 MG/ML VIAL IVP SCH (08:32)
[2021-01-24] MEDS: Roflumilast [Daliresp] 500 MCG Tablet PO SCH (08:32)
[2021-01-24 08:35] LABS: BUN/Creatinine Ratio 34 (6-26); Blood Urea Nitrogen 21 mg/dL (8-23); Calcium 9.3 mg/dL (8.6-10.3); Carbon Dioxide 37 mEq/L (23-29); Chloride 98 mEq/L (98-107); Glucose 118 mg/dL (70-105); Osmolality,Calculated 290 (280-300); Potassium 4.4 mEq/L (3.5-5.1); Sodium 138 mEq/L (136-145); eGFR For African Americans > 60 (> 60); eGFR For Non-African Americans > 60 (> 60)
[2021-01-24] MEDS ORDERED: cefTRIAXone 1,000 MG in 0.9 % Sodium Chloride Mini Bag 100 ML IVPB SCH (09:00)
[2021-01-24] MEDS ORDERED: Azithromycin 250 MG TABLET PO SCH ×2 (09:00)
[2021-01-24] MEDS ORDERED: cefTRIAXone 1,000 MG in Water for inj. (sterile) 10 ML IVP SCH (09:00)
[2021-01-24] MEDS: Budesonide/Formoterol 160/4.5 1 PUFF INH IH SCH (11:05)
[2021-01-24] MEDS: hydrOXYzine pamoate 25 MG CAPSULE PO PRN (11:29)
[2021-01-24] MEDS: *HR* LORazepam 0.5 MG TABLET PO PRN ×2 (11:29→19:48)
[2021-01-24 17:23] VITALS: RESP 18; O2SAT 96
[2021-01-24] MEDS ORDERED: QUEtiapine Fumarate 25 MG TABLET PO SCH (21:00)
== END 2021-01-24 19:50 | disposition home or self-care (01) ==
LOC: EMEROOPIK 16:39 → INPPIK 16:39
PROVIDERS: ADMIT Family Medicine; ATTEND Family Medicine

== ENCOUNTER 2021-02-03 15:27 | Observation (INO) ==
[2021-02-03 15:57] LABS: Basophils % 0.2 %; Eosinophils # 0.1 K/mcL (0.0-0.6); Eosinophils % 0.6 %; Hematocrit 35.3 % (37.5-50.1); Hemoglobin 10.3 g/dL (12.9-16.9); Immature Granulocytes % 0.5 % (0-4); Lymphocytes # 0.5 K/mcL (0.6-4.6); Lymphocytes % 4.9 %; Mean Corpuscular HGB Conc 29.2 g/dL (31.6-35.5); Mean Corpuscular Hemoglobin 28.3 pg (28.0-33.3); Mean Platelet Volume 9.1 fL (9.4-12.4); Monocytes # 0.6 K/mcL (0.0-1.3); Monocytes % 5.7 %; Neutrophils # 8.5 K/mcL (1.6-8.9); Platelet Count 248 K/mcL (140-400); Red Blood Count 3.64 M/mcL (4.19-5.50); Red Cell Distribution Width 14.2 % (11.5-14.5); Segmented Neutrophils % 88.1 %; White Blood Count 9.6 K/mcL (4.3-11.1)
[2021-02-03 16:33] LABS: Sodium 145 mEq/L (136-145)
[2021-02-03 16:34] LABS: BUN/Creatinine Ratio 29 (6-26); Blood Urea Nitrogen 15 mg/dL (8-23); Chloride 99 mEq/L (98-107); Glucose 115 mg/dL (70-105); Magnesium 2.1 mg/dL (1.6-2.6); Osmolality,Calculated 302 (280-300); Potassium 4.1 mEq/L (3.5-5.1); eGFR For African Americans > 60 (> 60); eGFR For Non-African Americans > 60 (> 60)
[2021-02-03 16:35] LABS: Alanine Aminotransferase 10 Units/L (7-52); Albumin 3.1 g/dL (3.5-5.7); Alkaline Phosphatase 172 Units/L (34-104); Aspartate Amino Transferase 17 Units/L (13-39); Bilirubin,Total 0.3 mg/dL (0.3-1.0); Calcium 9.6 mg/dL (8.6-10.3); Globulin 3.1 g/dL (2.4-3.5); Total Protein 6.2 g/dL (6.4-8.9)
[2021-02-03] MEDS ORDERED: Isovue-370 500 ML BOTTLE IVP ONE (16:58)
[2021-02-03] MEDS ORDERED: Acetaminophen 325 MG TABLET PO PRN (17:26)
[2021-02-03] MEDS ORDERED: Naloxone 0.4 MG/ML INJ IVP PRN (17:26)
[2021-02-03] MEDS: Albuterol 2.5 MG/3 ML NEBULIZER IH PRN (20:32)
[2021-02-03] MEDS: Budesonide/Formoterol 160/4.5 1 PUFF INH IH SCH (20:32)
[2021-02-03] MEDS ORDERED: Saline Nasal Spray 44 ML BOTTLE NS PRN (21:10)
[2021-02-03] MEDS: hydrOXYzine pamoate 25 MG CAPSULE PO PRN (21:35)
[2021-02-03] MEDS: *HR* HYDROcodone/Acet 5/325 mg TABLET PO PRN (21:35)
[2021-02-04] MEDS: *HR* HYDROcodone/Acet 5/325 mg TABLET PO PRN ×3 (03:45→20:09)
[2021-02-04 07:10] LABS: Basophils % 0.2 %; Eosinophils # 0.1 K/mcL (0.0-0.6); Eosinophils % 1.2 %; Hematocrit 33.1 % (37.5-50.1); Hemoglobin 9.6 g/dL (12.9-16.9); Immature Granulocytes % 0.5 % (0-4); Lymphocytes # 1.5 K/mcL (0.6-4.6); Lymphocytes % 14.9 %; Mean Corpuscular Hemoglobin 28.4 pg (28.0-33.3); Mean Corpuscular Volume 97.9 fL (83.0-100.0); Mean Platelet Volume 9.6 fL (9.4-12.4); Monocytes % 10.4 %; Neutrophils # 7.1 K/mcL (1.6-8.9); Platelet Count 237 K/mcL (140-400); Red Blood Count 3.38 M/mcL (4.19-5.50); Red Cell Distribution Width 13.9 % (11.5-14.5); Segmented Neutrophils % 72.8 %; White Blood Count 9.8 K/mcL (4.3-11.1)
[2021-02-04 07:34] LABS: BUN/Creatinine Ratio 36 (6-26); Blood Urea Nitrogen 18 mg/dL (8-23); Calcium 9.7 mg/dL (8.6-10.3); Chloride 96 mEq/L (98-107); Glucose 106 mg/dL (70-105); Osmolality,Calculated 296 (280-300); Potassium 4.4 mEq/L (3.5-5.1); Sodium 142 mEq/L (136-145); eGFR For African Americans > 60 (> 60); eGFR For Non-African Americans > 60 (> 60)
[2021-02-04 07:37] LABS: Carbon Dioxide > 45 mEq/L (23-29)
[2021-02-04 08:22] LABS: Carbon Dioxide 41 mEq/L (23-29)
[2021-02-04] MEDS ORDERED: (Roflumilast [Daliresp] 500 MCG Tablet) PO SCH (09:00)
[2021-02-04] MEDS ORDERED: Tiotropium 10 INH DOSE IH SCH (10:00)
[2021-02-04] MEDS: Budesonide/Formoterol 160/4.5 1 PUFF INH IH SCH ×2 (10:07→21:46)
[2021-02-04] MEDS: Albuterol 2.5 MG/3 ML NEBULIZER IH PRN ×2 (10:11→20:09)
[2021-02-04] MEDS ORDERED: Azithromycin 500 MG in 0.9 % Sodium Chloride 250 ML IVPB SCH (11:00)
[2021-02-04] MEDS: hydrOXYzine pamoate 25 MG CAPSULE PO PRN ×2 (14:26→20:09)
[2021-02-04] MEDS ORDERED: Azithromycin 250 MG TABLET PO SCH (16:30)
[2021-02-04 19:37] VITALS: TEMP 97.9
[2021-02-04] MEDS ORDERED: predniSONE 20 MG TABLET PO SCH (20:26)
[2021-02-04] MEDS ORDERED: QUEtiapine Fumarate 25 MG TABLET PO ONE (20:42)
[2021-02-05] MEDS ORDERED: *HR* LORazepam 0.5 MG TABLET PO ONE (01:16)
[2021-02-05 01:41] LABS: ABG Base Excess 12 mEq/L (-2 to 3); ABG HCO3 45 mEq/L (21-27); ABG Oxygen Saturation 88 % (95-98); ABG PCO2 109 mmHg (35-45); ABG PH 7.23 pH Units (7.32-7.45); ABG PO2 71 mmHg (85-104); ABG TCO2 49 mEq/L (20-26)
[2021-02-05] MEDS: Ipratropium/Albuterol Neb 3 ML IH SCH ×2 (02:00→02:48)
[2021-02-05] MEDS ORDERED: methylPREDNISolone 125 MG/2 ML VIAL IVP STA (02:24)
[2021-02-05] MEDS ORDERED: 0.9 % Sodium Chloride 500 ML IVC ONE (02:44)
[2021-02-05] MEDS ORDERED: 0.9 % Sodium Chloride 1,000 ML ONE (02:45)
[2021-02-05 03:06] VITALS: RESP 35
[2021-02-05 03:15] VITALS: BP 99/64; PULSE 86; O2SAT 97
[2021-02-05] MEDS ORDERED: *HR* Enoxaparin 40 MG/0.4 ML SYRINGE SQ SCH (06:00)
== END 2021-02-05 03:50 | disposition short-term general hospital (02) ==
LOC: INPPIK 15:27 → EMEROOPIK 15:27 → INPPIK 18:11
PROVIDERS: ADMIT Family Medicine; ATTEND Family Medicine